=== PATIENT | female | born 1965 | race Caucasian/White ===

== ENCOUNTER 2020-07-25 07:34 | Outpatient (REF) | payer MEDICARE, SELFPAY ==
[2020-07-25 08:37] LABS: MANUAL DIFF FLAG NO
[2020-07-25 08:50] LABS: Basophils Percent Auto 0.8 % (0-2); Eosinophils Absolute Auto 0.2 X10*3/uL (0.0-0.4); Eosinophils Percent Auto 4.1 % (0-4); Hematocrit 40.4 % (37-47); Hemoglobin 13.2 g/dl (12.0-16.0); Imm Gran Abs Auto 0.01 X10*3/uL (0.00-0.03); Imm Gran Pct Auto 0.2 % (0.0-0.4); Lymphocytes Absolute Auto 1.7 X10*3/uL (1.2-4.9); Lymphocytes Percent Auto 34.8 % (20-40); Mean Corpuscular HGB Conc 32.7 g/dl (31.0-35.0); Mean Corpuscular Hemoglobin 29.8 pg (27.0-33.0); Mean Corpuscular Volume 91.2 fL (80-98); Mean Platelet Volume 10.2 fL (9.4-12.3); Monocytes Absolute Auto 0.5 X10*3/uL (0.1-1.2); Monocytes Percent Auto 9.5 % (2-11); Neutrophils Absolute Auto 2.5 X10*3/uL (2.0-8.3); Neutrophils Percent Auto 50.6 % (45-73); Platelet Count 258 X10*3/uL (160-400); Red Blood Count 4.43 X10*6/uL (4.20-5.50); Red Cell Distribution Width 13.4 % (11.0-16.0); White Blood Count 4.9 X10*3/uL (4.8-10.8)
[2020-07-25 09:22] LABS: TSH reflex Free T4 0.96 uIU/mL (0.32-4.0); Vitamin D 25-OH Total 62.8 ng/mL (>30)
[2020-07-25 09:32] LABS: Alanine Aminotransferase 19 U/L (0-31); Albumin Level 3.8 g/dL (3.5-5.0); Alkaline Phosphatase 90 U/L (39-117); Anion Gap 9 (12-20); Aspartate Amino Transferase 26 U/L (5-31); Bilirubin Total 0.5 mg/dL (0.0-1.0); Blood Urea Nitrogen 15 mg/dL (9-16); Calcium 9.1 mg/dL (8.4-10.2); Carbon Dioxide 28 mmol/L (22-29); Chloride 107 mmol/L (96-108); Cholesterol 200 mg/dL; Estimated Glomerular Filt Rate > 60; Glucose Fasting 81 mg/dL (60-99); HDL Cholesterol 66 mg/dL; LDL Cholesterol Calculated 124 mg/dl; Potassium 4.2 mmol/L (3.3-5.1); Sodium 140 mmol/L (135-145); Total Protein 6.4 g/dL (6.5-8.0); Triglycerides 53 mg/dL
[2020-07-30 15:27] LABS: Vitamin A 34 mcg/dL (38-98)
== END 2020-07-25 07:35 | disposition home or self-care (01) ==
LOC: HO.LAB 07:34
PROVIDERS: PCP Internal Medicine; Visit Provider Nurse Practitioner Family
DX: Z13.220 Encounter for screening for lipoid disorders (principal); R53.82 Chronic fatigue, unspecified
CPT/HCPCS: 36415; 80053; 80061; 82306; 84443; 84590; 85025

== ENCOUNTER 2021-07-29 06:33 | Outpatient (REF) | payer MEDICARE, SELFPAY ==
[2021-07-29 07:54] LABS: Anion Gap 9 (12-20); Blood Urea Nitrogen 12 mg/dL (9-16); Calcium 9.2 mg/dL (8.4-10.2); Carbon Dioxide 30 mmol/L (22-29); Chloride 104 mmol/L (96-108); Estimated Glomerular Filt Rate > 60; Glucose Fasting 82 mg/dL (60-99); Potassium 4.2 mmol/L (3.3-5.1); Sodium 139 mmol/L (135-145)
== END 2021-07-29 06:34 | disposition home or self-care (01) ==
LOC: HO.LAB 06:33
PROVIDERS: PCP Internal Medicine; Visit Provider Nurse Practitioner Family
DX: Z13.1 Encounter for screening for diabetes mellitus (principal)
CPT/HCPCS: 36415; 80048

== ENCOUNTER 2021-09-26 07:07 | Outpatient (REF) | payer MEDICARE, SELFPAY ==
[2021-09-26 07:29] LABS: MANUAL DIFF FLAG NO
[2021-09-26 07:51] LABS: Basophils Percent Auto 0.7 % (0-2); Eosinophils Absolute Auto 0.2 X10*3/uL (0.0-0.4); Eosinophils Percent Auto 3.9 % (0-4); Hematocrit 40.9 % (37.0-47.0); Hemoglobin 13.1 g/dl (12.0-16.0); Imm Gran Abs Auto 0.01 X10*3/uL (0.00-0.03); Imm Gran Pct Auto 0.2 % (0.0-0.4); Lymphocytes Percent Auto 35.7 % (20-40); Mean Corpuscular Hemoglobin 28.6 pg (27.0-33.0); Mean Corpuscular Volume 89.3 fL (80.0-98.0); Mean Platelet Volume 10.2 fL (9.4-12.3); Monocytes Absolute Auto 0.5 X10*3/uL (0.1-1.2); Monocytes Percent Auto 8.8 % (2-11); Neutrophils Absolute Auto 2.8 x10*3/uL (2.0-8.3); Neutrophils Percent Auto 50.7 % (45-73); Platelet Count 265 X10*3/uL (160-400); Red Blood Count 4.58 X10*6/uL (4.20-5.50); Red Cell Distribution Width 13.2 % (11.0-16.0); White Blood Count 5.6 X10*3/uL (4.8-10.8)
[2021-09-26 08:20] LABS: Alanine Aminotransferase 21 U/L (0-31); Albumin Level 3.9 g/dL (3.5-5.0); Alkaline Phosphatase 106 U/L (39-117); Aspartate Amino Transferase 24 U/L (5-31); Bilirubin Direct < 0.2 mg/dL (0.0-0.5); Bilirubin Total 0.4 mg/dL (0.0-1.0); Cholesterol 188 mg/dL; HDL Cholesterol 55 mg/dL; LDL Cholesterol Calculated 126 mg/dl; Total Protein 6.6 g/dL (6.5-8.0); Triglycerides 37 mg/dL
[2021-09-26 08:24] LABS: Appearance Urine CLEAR; Color Urine YELLOW; Glucose Urine UA NEG (NEG); Leukocyte Esterase Urine 3+ (NEG); Nitrite Urine NEG (NEG); Specific Gravity - Urine 1.015 (1.005-1.025); UACC Culture Trigger YES; Urine Blood NEG (NEG); Urine Ketones NEG (NEG); Urine Protein NEG (NEG-TRACE)
[2021-09-26 08:37] LABS: Squamous Epithelial Cell Urine 2+ /LPF
[2021-09-26 08:38] LABS: Renal Epithelial Cells Urine 1+ /LPF
[2021-09-26 08:41] LABS: TSH reflex Free T4 2.09 uIU/mL (0.32-4.0); Vitamin D 25-OH Total 79.7 ng/mL (>30)
[2021-09-26 08:43] LABS: RBC Urine 0 /HPF (0); WBC Clumps Urine NOTED
== END 2021-09-26 07:08 | disposition home or self-care (01) ==
LOC: HO.LAB 07:07
PROVIDERS: PCP Internal Medicine; Visit Provider Internal Medicine
DX: R00.2 Palpitations (principal); R53.82 Chronic fatigue, unspecified; E78.00 Pure hypercholesterolemia, unspecified; E55.9 Vitamin D deficiency, unspecified
CPT/HCPCS: 36415; 80061; 80076; 81001; 82306; 84443; 85025; 87086; 87147

== ENCOUNTER 2022-07-22 06:08 | Outpatient (REF) | payer MEDICARE, SELFPAY ==
[2022-07-22 08:09] LABS: Anion Gap 9 (12-20); Blood Urea Nitrogen 13 mg/dL (9-16); Calcium 9.2 mg/dL (8.4-10.2); Carbon Dioxide 28 mmol/L (22-29); Chloride 108 mmol/L (96-108); Estimated Glomerular Filt Rate > 60; Glucose Fasting 79 mg/dL (60-99); Potassium 3.9 mmol/L (3.3-5.1); Sodium 141 mmol/L (135-145)
== END 2022-07-22 06:09 | disposition home or self-care (01) ==
LOC: HO.LAB 06:08
PROVIDERS: PCP Internal Medicine; Visit Provider Nurse Practitioner Family
DX: Z13.1 Encounter for screening for diabetes mellitus (principal)
CPT/HCPCS: 36415; 80048

== ENCOUNTER 2022-08-07 08:41 | Outpatient (REF) | payer MEDICARE, SELFPAY ==
--- NOTE | ~2022-08-07 | XR_ITS ---
EXAMINATION: XR LUMBOSACRAL SPINE CLINICAL INFORMATION: Lower back pain. COMPARISON: Lumbar spine radiographs dated 12/12/2013. TECHNIQUE: Three views of the lumbosacral spine. FINDINGS: Normal vertebral body alignment. The lumbar lordosis is maintained. No acute fracture or subluxation. No loss of vertebral body or intervertebral disc height. No concerning lytic or blastic osseous lesion. Pelvic phleboliths. XR/XR lumbar spine 2-3V IMPRESSION: Unremarkable examination.
== END 2022-08-07 08:42 | disposition home or self-care (01) ==
LOC: HO.XRAY 08:41
PROVIDERS: PCP Internal Medicine; Visit Provider Internal Medicine
DX: M54.50 Low back pain, unspecified (principal)
CPT/HCPCS: 72100

== ENCOUNTER 2022-10-08 06:14 | Outpatient (REF) | payer MEDICARE, SELFPAY ==
[2022-10-08 06:26] LABS: MANUAL DIFF FLAG NO
[2022-10-08 07:06] LABS: Basophils Percent Auto 0.8 % (0-2); Eosinophils Absolute Auto 0.2 X10*3/uL (0.0-0.4); Hematocrit 42.8 % (37.0-47.0); Hemoglobin 13.8 g/dl (12.0-16.0); Imm Gran Abs Auto 0.01 X10*3/uL (0.00-0.03); Imm Gran Pct Auto 0.2 % (0.0-0.4); Lymphocytes Absolute Auto 2.5 X10*3/uL (1.2-4.9); Lymphocytes Percent Auto 50.9 % (20-40); Mean Corpuscular HGB Conc 32.2 g/dl (31.0-35.0); Mean Corpuscular Hemoglobin 29.1 pg (27.0-33.0); Mean Corpuscular Volume 90.1 fL (80.0-98.0); Mean Platelet Volume 10.3 fL (9.4-12.3); Monocytes Absolute Auto 0.4 X10*3/uL (0.1-1.2); Monocytes Percent Auto 8.9 % (2-11); Neutrophils Absolute Auto 1.8 x10*3/uL (2.0-8.3); Neutrophils Percent Auto 35.2 % (45-73); Platelet Count 220 X10*3/uL (160-400); Red Blood Count 4.75 X10*6/uL (4.20-5.50); Red Cell Distribution Width 13.4 % (11.0-16.0)
[2022-10-08 07:13] LABS: Estimated Average Glucose 97 mg/dL
[2022-10-08 07:22] LABS: Alanine Aminotransferase 27 U/L (0-31); Albumin Level 4.1 g/dL (3.5-5.0); Alkaline Phosphatase 91 U/L (39-117); Anion Gap 12 (12-20); Aspartate Amino Transferase 33 U/L (5-31); Bilirubin Total 0.7 mg/dL (0.0-1.0); Blood Urea Nitrogen 14 mg/dL (9-16); Calcium 9.6 mg/dL (8.4-10.2); Carbon Dioxide 28 mmol/L (22-29); Chloride 105 mmol/L (96-108); Cholesterol 199 mg/dL (<200); Estimated Glomerular Filt Rate > 60; Glucose Fasting 83 mg/dL (60-99); HDL Cholesterol 71 mg/dL (>40); LDL Cholesterol Calculated 119 mg/dL (<100); Potassium 3.9 mmol/L (3.3-5.1); Sodium 141 mmol/L (135-145); Total Protein 7.1 g/dL (6.5-8.0); Triglycerides 49 mg/dL (<150)
[2022-10-08 07:40] LABS: TSH reflex Free T4 2.73 uIU/mL (0.32-4.0); Vitamin D 25-OH Total 64.6 ng/mL (>30)
[2022-10-08 07:53] LABS: Folate 16.8 ng/mL (> or = 4.0); Vitamin B12 986 pg/mL (200-900)
[2022-10-08 08:54] LABS: Appearance Urine Clear; Color Urine Yellow; Glucose Urine UA Negative (Negative); Leukocyte Esterase Urine Small (1+) (Negative); Nitrite Urine Negative (Negative); UMIC TRIGGER UACC YES; Urine Blood Negative (Negative); Urine Ketones Negative (Negative); Urine Protein Negative (Neg-Trace)
[2022-10-08 09:04] LABS: Bacteria Urine None Seen (None Seen); Hyaline Casts Urine 0-2 /LPF (0-2); RBC Urine 0-2 /HPF (0-2); Squamous Epithelial Cell Urine 0-2 /HPF (0-2); UACC Culture Trigger YES; WBC Urine 0-5 /HPF (0-5)
[2022-10-15 00:03] LABS: Vitamin A 35 mcg/dL (38-98)
== END 2022-10-08 06:15 | disposition home or self-care (01) ==
LOC: HO.LAB 06:14
PROVIDERS: PCP Internal Medicine; Visit Provider Internal Medicine
DX: Z00.00 Encounter for general adult medical examination without abnormal findings (principal); E53.8 Deficiency of other specified B group vitamins; E50.9 Vitamin A deficiency, unspecified; R73.9 Hyperglycemia, unspecified; E78.00 Pure hypercholesterolemia, unspecified; I34.1 Nonrheumatic mitral (valve) prolapse; G43.909 Migraine, unspecified, not intractable, without status migrainosus; E55.9 Vitamin D deficiency, unspecified; R30.0 Dysuria
CPT/HCPCS: 36415; 80053; 80061; 81001; 82306; 82607; 82746; 83036; 84443; 84590; 85025; 87086

== ENCOUNTER 2022-10-19 08:22 | Emergency (ER) | payer MEDICARE, SELFPAY ==
[2022-10-19 08:24] VITALS: BP 133/75; PULSE 90; RESP 18; TEMP 36.7; O2SAT 97; BMI 21.0
--- NOTE | 2022-10-19 08:31 | ED.EYEPROB ---
HPI - Eye Problem General Chief complaint: Eye Problems Stated complaint: R eye pain Time Seen by Provider: 10/19/22 08:29 Source: patient Mode of arrival: ambulatory Limitations: no limitations History of Present Illness HPI Narrative: right eyelid pain and swelling for 2 days. no injury no problem with her vision, noticed a little swelling to her eyelid. chief complaint: other (eyelid pain) Onset (ago): day(s) Onset description: gradual Duration: constant Location: right eye Related Data Home Medications Medication Instructions Recorded Confirmed sulfacetamide sodium (acne) 10 % ml topical 07/11/20 08/06/22 lotion (suspension) Previous Rx's Medication Instructions Recorded bupropion HCl 150 mg tablet,12 hr 150 mg PO DAILY 90 days #90 tabs 11/12/21 sustained-release erythromycin 5 mg/gram (0.5 %) eye 1 appl ophthalmic (eye) Q6H apply 10/19/22 ointment small amount 4 times a day #3.5 grams Allergies Allergy/AdvReac Type Severity Reaction Status Date / Time codeine [CODEINE] Allergy Unknown RASH Verified 10/19/22 08:23 dog dander [DOGS] Allergy Unknown DIFFICULTY Verified 10/19/22 08:23 BREATHING fluconazole [From DIFLUCAN] Allergy Unknown DIARRHEA Verified 10/19/22 08:23 levofloxacin [From LEVAQUIN] Allergy Unknown RASH Verified 10/19/22 08:23 milk [MILK] Allergy Unknown HIVES Verified 10/19/22 08:23 Penicillins [PENICILLINS] Allergy Unknown HIVES Verified 10/19/22 08:23 pollen extracts [POLLEN] Allergy Unknown DIFFICULTY Verified 10/19/22 08:23 BREATHING oxycodone [OXYCODONE] AdvReac Unknown VOMITING Verified 10/19/22 08:23 Review of Systems Review of Systems: Yes all other systems are reviewed and are negative Neurologic: Denies Sensory deficit (Neuro) [facility] [place] Past Medical History Medical History Anxiety Chronic fatigue Depression Migraine Mitral valve prolapse Osteoarthritis of cervical spine Surgical History No pertinent past surgical history Family History Family History Father CVD (cardiovascular disease) Mother No problems noted. Other Mental health problem Social History Social History Housing: Condominium Alcohol intake: never Patient Tobacco Use Status: Never used Tobacco e-Cigarette/Vaping Use: Never Used Second Hand Smoke Exposure: No service: No Current occupational status: disabled Cognitive needs: No Hearing needs: No Vision needs: No Physical Exam Vital Signs: Vital Signs: Last Vital Signs Temp 98.0 F 10/19/22 08:24 Pulse 90 10/19/22 08:24 Resp 18 10/19/22 08:24 BP 133/75 10/19/22 08:24 Pulse Ox 97 10/19/22 08:24 O2 Del Method Room Air 10/19/22 08:24 BMI result Body Mass Index 21.0 Const: General: healthy appearing Nutritional Appearance: average body habitus Orientation/consciousness: oriented to person and patient oriented x3 Limitations: no limitations HEENT: Head: Yes normal to inspection Ears: external ears normal General nose exam: Normal external nose present Mouth: Normal oral and palatal mucosa present and oropharynx normal Throat: Yes posterior oropharynx normal Eyes: Other: right medial upper eyelid with erythema and slight swelling Neck: Other: supple Neck: Yes normal visual inspection Chest: Chest palpation & inspection: normal inspection of the chest Resp: Auscultation: clear to auscultation bilaterally Cardio: Jugular venous distension: no JVD Rate: regular rate Rhythm: regular rhythm Heart sounds: S1 normal heart sound present and S2 normal heart sound present GI: Inspection: Yes normal to inspection Palpation (GI): Soft to palpation, nontender and No hepatosplenomegaly present Auscultation: normal bowel sounds : General: Yes no CVA tenderness Back/Spine/Pelvis: Back: no CVA tenderness Skin: General skin exam: no rashes or lesions noted Neuro: General: oriented to person and patient oriented x3 Cranial nerves: Yes CN's II-XII intact bilaterally Motor exam (neuro): 5/5 motor strength present throughout Sensory Exam: No Sensory deficit (Neuro) Extrem: General: Yes normal to inspection Psych: Appearance: grossly normal Course Reevaluation(s) Reevaluation #1: Will treat for early hordoleum with erythromycin and warm compresses Time: 08:34 Medical Decision Making Differential Diagnosis Differential Diagnoses: The differential diagnosis associated with the presentation includes (hordoleum, infected duct, conjunctivitis were all considered) Tests considered The following testing was considered but not selected: I considered doing a flouresceine test but no trauma no injection to the conjunctiva Discharge Plan Discharge Clinical Impression: Hordeolum Patient Disposition: Home, Self-Care Instructions: Sis (ED) Additional Instructions: warm compresses 4 times a day Prescriptions: New erythromycin 5 mg/gram (0.5 %) ointment 1 appl ophthalmic (eye) Q6H Qty: 3.5 0RF No Action bupropion HCl 150 mg tablet sustained-release 12 hr 150 mg PO DAILY 90 Days Qty: 90 3RF sulfacetamide sodium (acne) 10 % suspension topical Referrals: Beto Ba MD [Primary Care Provider] - 1 week
[2022-10-19] MEDS: Erythromycin Base 0.5% Oph Oin 1 GM TUBE 1 CM EYE-RIGHT (08:49)
== END 2022-10-19 09:04 | disposition home or self-care (01) ==
PROVIDERS: Emergency Provider Emergency Medicine; PCP Internal Medicine
DX: H00.013 Hordeolum externum right eye, unspecified eyelid (principal); Z79.899 Other long term (current) drug therapy
CPT/HCPCS: 99283; 99284

== ENCOUNTER 2022-11-28 09:10 | Outpatient (AMB) | payer MEDICARE, SELFPAY ==
--- NOTE | 2022-11-28 09:14 | A.OFFPC_ITS ---
Vital Signs 11/28/22 09:23 Height 5 ft 2 in Weight 116 lb 2 oz BMI 21.2 BP 100/62 Blood Pressure Location Lt brachial Position Sitting Respiration 17 Pulse 88 Pulse Source Pulse Oximeter Pulse Oximetry (%) 98 Oxygen Delivery Method Room Air Intake Visit Reasons: pain due to sty on her eye Intake Note: Pt is here for stye on right eye. Pt requesting health care marketing specialist. [employer] Player Required: No Accompanied by: Self / Same As Patient Allergies codeine [CODEINE] Allergy (Unknown, Verified 11/28/22 10:07) RASH dog dander [DOGS] Allergy (Unknown, Verified 11/28/22 10:07) DIFFICULTY BREATHING fluconazole [From DIFLUCAN] Allergy (Unknown, Verified 11/28/22 10:07) DIARRHEA levofloxacin [From LEVAQUIN] Allergy (Unknown, Verified 11/28/22 10:07) RASH milk [MILK] Allergy (Unknown, Verified 11/28/22 10:07) HIVES Penicillins [PENICILLINS] Allergy (Unknown, Verified 11/28/22 10:07) HIVES pollen extracts [POLLEN] Allergy (Unknown, Verified 11/28/22 10:07) DIFFICULTY BREATHING oxycodone [OXYCODONE] Adverse Reaction (Unknown, Verified 11/28/22 10:07) VOMITING Medication List - Last Reconciled 11/28/22 by Beto Ba MD bupropion HCl 150 mg PO DAILY 90 days erythromycin 1 appl ophthalmic (eye) Q6H sulfacetamide sodium (acne) 10% mL topical Tobacco use date assessed: 08/06/22 Dental Screening Dental Screen Date: 11/28/22 Did you have a dental visit in the last 12 months?: Yes Did you have a dental problem in the last 6 months where you did not have access to dental care?: No Was dental information given to patient?: Patient has dentist HPI pain due to sty on her eye HPI Details Patient comes in today for further evaluation/discussion of recurrent right upper eyelid infection / sty States that she developed a sty over the medial/nasal side of her right upper eyelid internally last month on 10/19/22 As it was on the weekend then, she went to the ER and was prescribed some erythromycin eye ointment and instructed to apply warm compress until the sty subsides States that she broke out with another sty a week later, this time on the lateral side of her right upper eyelid and also internally She did the same things she did a week ago and her sty also gradually cleared up States that she called her eye doctor (Dr. Dent) to schedule an appointment to have her eye checked as she was concerned about how often the sty were recurring but was told that the earliest appointment they can give her was sometime in 02/2023 She is wondering if we can try to get her in to see another eye doctor sooner to have her eye checked out States that her right eye currently feels okay and that both of the lesions have cleared up but she feels that there is a small residual area on the nasal side of her right upper eyelid internally that is still slightly swollen/prominent and she is afraid that the sty can recur there at anytime States that she presently has no other acute complaints or issues [facility] Medical History Depression Anxiety Chronic fatigue Mitral valve prolapse Migraine Osteoarthritis of cervical spine Surgical History No pertinent past surgical history Family History Father CVD (cardiovascular disease) Mother No problems noted. Other Mental health problem Social History Housing: Condominium Alcohol intake: never Patient Tobacco Use Status: Never used Tobacco e-Cigarette/Vaping Use: Never Used Second Hand Smoke Exposure: No service: No Current occupational status: disabled Cognitive needs: No Hearing needs: No Vision needs: No Questionnaire Thrive Questionnaire Date Thrive assessed: 08/06/22 FITO-7 AMB Questionnaire FITO-7 Date FITO - 7 assessed: 08/06/22 Source: Developed by Drs. Ahmet Francis, Peyton Tubbs, Gabriel Nicholson and colleagues, with an educational benson from [employer]. Review of Systems Const Denies fever(s) and Denies headache(s) Eyes Details: (+) slight discomfort over the nasal side of her right upper eyelid - see HPI Denies blurry vision and Denies eye pain ENT Denies dysphagia, Denies dizziness, Denies headache(s) and Denies sore throat Card Denies chest pain, Denies palpitations and Denies dyspnea Resp Denies cough and Denies dyspnea GI Denies abdominal pain, Denies constipation, Denies dysphagia, Denies diarrhea, Denies nausea and Denies vomiting Denies nocturia and Denies dysuria Neuro Denies dizziness and Denies headache(s) Endo Denies palpitations Physical exam (Primary Care) Vital Signs: Last Vital Signs Pulse 88 11/28/22 09:23 Resp 17 11/28/22 09:23 BP 100/62 11/28/22 09:23 Pulse Ox 98 11/28/22 09:23 Oxygen Delivery Method Room Air 11/28/22 09:23 BMI result Body Mass Index 21.2 Tobacco/Smoking Status: Tobacco use Status Tobacco use date assessed 08/06/22 11/28/22 09:15 Patient Tobacco Use Status Never used Tobacco 11/28/22 09:15 e-Cigarette/Vaping Use Never Used 11/28/22 09:15 Thrive Assessment: Date of Thrive Assessment Date Thrive assessed 08/06/22 11/28/22 09:15 Const General: no acute distress and alert Eyes General: appearance normal, both eyes and all related structures Eyelids: Yes eyelids normal Conjunctivae: conjunctivae normal Pupils: Equal, round and reactive pupils present EOM: EOMs intact bilaterally Neck Neck: Yes no lymphadenopathy and Yes supple Resp Auscultation: clear to auscultation bilaterally, no rales and no wheezes Cardio Rate: regular rate Rhythm: regular rhythm Heart sounds: no murmurs GI Palpation (GI): Soft to palpation, nontender and No hepatosplenomegaly present Neuro Cranial nerves: Yes Equal, round and reactive pupils present Extrem General: Yes no clubbing, cyanosis or edema Assessment and Plan Assessment & Plan (1) Hordeolum: Code(s): H00.019 - Hordeolum externum unspecified eye, unspecified eyelid Qualifiers: Hordeolum type: internum Laterality: right Eyelid: upper Qualified Code(s): H00.021 - Hordeolum internum right upper eyelid Plan: Per request, [facility] of her recent recurrent internal hordeolum of the right upper eyelid Advised that she can try calling them to see if they can get her on a cancellation list but it will still be up to their schedule as to how soon they can see her Advised that her right upper eyelid looks okay at this time and she can continue applying some warm compress over her right upper eyelid PRN for symptomatic relief until she is seen by ophthalmology Advised that she can start back on her Erythromycin eye ointment as instructed IF her sty recurs at any time before she is able to get in to see the eye doctor Plan Follow up as scheduled in January 2023 Orders: Referrals Ophthalmology Referral H00.019 - Hordeolum externum unspecified eye, unspecified eyelid Coding Level of Care Code Est Pt Level 3 (63385) Diagnoses Hordeolum internum of right upper eyelid H00.021 Hordeolum type: internum Laterality: right Eyelid: upper
[2022-11-28 09:23] VITALS: BP 100/62; PULSE 88; RESP 17; O2SAT 98; BMI 21.2
== END 2022-11-28 10:09 | disposition home or self-care (01) ==
PROVIDERS: PCP Internal Medicine; Visit Provider Internal Medicine
DX: H00.021 Hordeolum internum right upper eyelid (principal)
CPT/HCPCS: 99213

== ENCOUNTER 2022-12-09 10:04 | Outpatient (AMB) | payer MEDICARE, SELFPAY ==
--- NOTE | 2022-12-09 10:12 | MHC.OFFWIV ---
Intake Vital Signs 12/09/22 10:20 Height 5 ft 2 in Weight 115 lb BMI 21.0 BP 110/60 Blood Pressure Location Rt brachial Position Sitting Pulse 86 Pulse Source Pulse Oximeter Temp 97.4 F Temp Source Temporal Artery Scan Pulse Oximetry (%) 98 Oxygen Delivery Method Room Air Intake Visit Reasons: EST/2 weeks with sore throat(lobby masked) Intake Note: Pt is here c/o sore throat for the past two weeks. Pt states she has now developed a dry cough causing her difficulty to sleep at night. Pt states home remedies and otc medications have not helped her. Patient Tobacco Use Status: Never used Tobacco Allergies codeine [CODEINE] Allergy (Unknown, Verified 12/09/22 10:45) RASH dog dander [DOGS] Allergy (Unknown, Verified 12/09/22 10:45) DIFFICULTY BREATHING fluconazole [From DIFLUCAN] Allergy (Unknown, Verified 12/09/22 10:45) DIARRHEA levofloxacin [From LEVAQUIN] Allergy (Unknown, Verified 12/09/22 10:45) RASH milk [MILK] Allergy (Unknown, Verified 12/09/22 10:45) HIVES Penicillins [PENICILLINS] Allergy (Unknown, Verified 12/09/22 10:45) HIVES pollen extracts [POLLEN] Allergy (Unknown, Verified 12/09/22 10:45) DIFFICULTY BREATHING oxycodone [OXYCODONE] Adverse Reaction (Unknown, Verified 12/09/22 10:45) VOMITING Medication List - Last Reconciled 12/09/22 by Rahul Goodwin MD bupropion HCl 150 mg PO DAILY 90 days erythromycin 1 appl ophthalmic (eye) Q6H sulfacetamide sodium (acne) 10% mL topical Do you need a note to return to daycare/school/sports/work: No HPI EST/2 weeks with sore throat(lobby masked) HPI Details Patient presents for a sick visit. Reporting symptoms of sinus congestion, sore throat and difficulty swallowing. Low-grade fever. No family member is sick. No recent travel. Patient reports symptoms of malaise and fatigue. [facility] Medical History Depression Anxiety Chronic fatigue Mitral valve prolapse Migraine Osteoarthritis of cervical spine Surgical History No pertinent past surgical history Family History Father CVD (cardiovascular disease) Mother No problems noted. Other Mental health problem Social History Housing: Condominium Alcohol intake: never Patient Tobacco Use Status: Never used Tobacco e-Cigarette/Vaping Use: Never Used Second Hand Smoke Exposure: No service: No Current occupational status: disabled Cognitive needs: No Hearing needs: No Vision needs: No Physical Exam Vital Signs: Last Vital Signs Temp 97.4 F 12/09/22 10:20 Pulse 86 12/09/22 10:20 BP 110/60 12/09/22 10:20 Pulse Ox 98 12/09/22 10:20 Oxygen Delivery Method Room Air 12/09/22 10:20 BMI result Body Mass Index 21.0 Const General: cooperative and healthy appearing Nutritional Appearance: well nourished Orientation/consciousness: patient oriented x3 Limitations: no limitations HEENT Head: Yes normal to inspection Eyes General: appearance normal, both eyes and all related structures Neck Neck: Yes normal visual inspection Chest Chest palpation & inspection: normal palpation of entire chest wall Resp Effort & Inspection: normal respiratory effort Neuro General: patient oriented x3 Results AMB Rapid Strep AMB Rapid Strep Negative Last Edit by Gina Martini CMA on 12/09/22 10:24 Results Reviewed Results Reviewed: Laboratory Last Values Strep Scn [facility] Negative 12/09/22 10:24 Assessment & Plan Assessment & Plan (1) Upper respiratory tract infection: Code(s): J06.9 - Acute upper respiratory infection, unspecified Plan: Antibiotics ordered. Increase fluid intake. Tylenol for aches and pains. If symptoms worsen, follow-up here for a recheck. Orders: Orders AMB Rapid Strep Screen Today Z13.9 - Encounter for screening, unspecified Coding Level of Care Code Est Pt Level 3 (89032) Diagnoses Upper respiratory tract infection J06.9
[2022-12-09 10:20] VITALS: BP 110/60; PULSE 86; TEMP 36.3; O2SAT 98; BMI 21.0
== END 2022-12-09 11:15 | disposition home or self-care (01) ==
PROVIDERS: PCP Internal Medicine; Visit Provider Internal Medicine
DX: J06.9 Acute upper respiratory infection, unspecified (principal); J02.9 Acute pharyngitis, unspecified
CPT/HCPCS: 87880; 99213

== ENCOUNTER 2023-02-04 08:32 | Outpatient (AMB) | payer MEDICARE, SELFPAY ==
[2023-02-04 08:35] VITALS: BP 102/70; PULSE 96; O2SAT 96; BMI 21.8
--- NOTE | 2023-02-04 08:35 | A.OFFPC_ITS ---
Vital Signs 02/04/23 08:35 Height 5 ft 2 in Weight 119 lb 2 oz BMI 21.8 BP 102/70 Blood Pressure Location Lt brachial Position Sitting Pulse 96 Pulse Source Pulse Oximeter Pulse Oximetry (%) 96 Oxygen Delivery Method Room Air Intake Visit Reasons: mitral valve prolapse, migraine, OA Medical Records Receptionist Required: No Accompanied by: Self / Same As Patient Allergies codeine [CODEINE] Allergy (Unknown, Verified 02/04/23 09:14) RASH dog dander [DOGS] Allergy (Unknown, Verified 02/04/23 09:14) DIFFICULTY BREATHING fluconazole [From DIFLUCAN] Allergy (Unknown, Verified 02/04/23 09:14) DIARRHEA levofloxacin [From LEVAQUIN] Allergy (Unknown, Verified 02/04/23 09:14) RASH milk [MILK] Allergy (Unknown, Verified 02/04/23 09:14) HIVES Penicillins [PENICILLINS] Allergy (Unknown, Verified 02/04/23 09:14) HIVES pollen extracts [POLLEN] Allergy (Unknown, Verified 02/04/23 09:14) DIFFICULTY BREATHING oxycodone [OXYCODONE] Adverse Reaction (Unknown, Verified 02/04/23 09:14) VOMITING Medication List - Last Reconciled 02/04/23 by Beto Ba MD bupropion HCl 150 mg PO DAILY 90 days sulfacetamide sodium (acne) 10% mL topical Tobacco use date assessed: 02/04/23 Dental Screening Dental Screen Date: 02/04/23 Did you have a dental visit in the last 12 months?: Yes Did you have a dental problem in the last 6 months where you did not have access to dental care?: No Was dental information given to patient?: Patient has dentist HPI mitral valve prolapse, migraine, OA HPI Details Patient comes in today for her follow up visit States that she feels okay She denies any headaches or dizziness Denies any chest pains, no SOB No nausea/vomiting, no abdominal pain No change in bowel habits noted Would like to know how she did on her labs done back in September 2022 She had a negative Cologuard in July 2020 and will need this repeated next year unless she decides to go for a regular colonoscopy Pap smear and annual lamination operator exam was last done in 01/2022 [facility] Medical History Depression Anxiety Chronic fatigue Mitral valve prolapse Migraine Osteoarthritis of cervical spine Surgical History No pertinent past surgical history Family History Father CVD (cardiovascular disease) Mother No problems noted. Other Mental health problem Social History Housing: Condominium Alcohol intake: never Patient Tobacco Use Status: Never used Tobacco e-Cigarette/Vaping Use: Never Used Second Hand Smoke Exposure: No service: No Current occupational status: disabled Cognitive needs: No Hearing needs: No Vision needs: No Questionnaire PHQ-9 Over the last 2 weeks, how often have you been bothered by any of the following problems? 1. Little interest or pleasure in doing things: several days (family loss ) 2. Feeling down, depressed, or hopeless: several days 3. Trouble falling or staying asleep, or sleeping too much: several days 4. Feeling tired or having little energy: several days 5. Poor appetite or overeating: not at all 6. Feeling bad about yourself - or that you are a failure or have let yourself or your family down: not at all 7. Trouble concentrating on things, such as reading the newspaper or watching television: not at all 8. Moving or speaking so slowly that other people could have noticed. Or the opposite - being so fidgety or restless that you have been moving around a lot more than usual: not at all 9. Thoughts that you would be better off or of hurting yourself in some way: not at all Total score: 4 Depression Screening Interpretation: Positive Depression Screening Follow-up: Existing condition and In treatment Depression Screening Done: Yes 13493 - PHQ-9 Billing: Yes Source: Developed by Drs. Ahmet Francis, Peyton Tubbs, Gabriel Nicholson and colleagues, with an educational benson from [employer]. Thrive Questionnaire Date Thrive assessed: 02/04/23 I am a: Patient What is your living situation today?: I have a steady place to live Within the past 12 months, did the food you bought not last and you didn't have the money to get more?: Never true Within the past 12 months, did you worry whether your food would run out before you got money to buy more?: Never true Do you have trouble paying for medicines?: No Do you have trouble getting transportation to medical appointments?: No Do you have trouble paying your heating and electricity bill?: No Do you have trouble taking care of your child, family member or friend?: No Do you have trouble with day-to-day activities such as bathing, preparing meals, shopping, managing finances, etc.?: No Are you currently unemployed and looking for a job?: No Are you interested in more education?: No Please select the resources that you would like help with: None Currently or been in a relationship where the following occur: no concerns reported AUDIT C Alcohol Use Questionnaire (AUDIT-C) 1. How often do you have a drink containing alcohol?: Never 3. How often do you have six or more drinks on one occasion?: Never Total Score: 0 Score Reviewed/Action Taken: Yes FITO-7 AMB Questionnaire FITO-7 Date FITO - 7 assessed: 02/04/23 Feeling nervous, anxious, or on edge: 0 = Not at all Not being able to stop or control worryin = Not at all Worrying too much about different things: 0 = Not at all Trouble relaxin = Not at all Being so restless that it is hard to sit still: 0 = Not at all Becoming easily annoyed or irritable: 0 = Not at all Feeling afraid as if something awful might happen: 0 = Not at all Total FITO-7 score (0-4 normal; 5-9 mild; 10-14 moderate; 15-21 severe): 0 Source: Developed by Drs. Ahmet Francis, Peyton Tubbs, Gabriel Nicholson and colleagues, with an educational benson from [employer]. Review of Systems Const Denies chills, Reports difficulty sleeping, Reports fatigue, Denies fever(s) and Denies headache(s) ENT Denies dysphagia, Denies dizziness, Denies otalgia, Denies headache(s), Reports neck pain (on and off), Denies odynophagia and Denies sore throat Card Denies chest pain, Reports palpitations (occasional fluterring sensation in heart,usually when she feels stressed) and Denies dyspnea Resp Denies cough, Denies dyspnea and Denies wheezing GI Denies abdominal pain, Denies constipation, Denies dysphagia, Denies heartburn, Denies diarrhea, Denies nausea, Denies odynophagia and Denies vomiting Denies difficulty voiding, Denies nocturia, Denies dysuria and Denies urinary urgency Musc Reports back pain (on and off over the lower back), Reports neck pain (on and off) and Reports stiffness (in the neck) Skin/Breast Denies rash Neuro Denies dizziness and Denies headache(s) Psych Reports anxiety Endo Reports fatigue and Reports palpitations (occasional fluterring sensation in heart,usually when she feels stressed) Aller/Immun Denies wheezing Physical exam (Primary Care) Vital Signs: Last Vital Signs Pulse 96 02/04/23 08:35 BP 102/70 02/04/23 08:35 Pulse Ox 96 02/04/23 08:35 Oxygen Delivery Method Room Air 02/04/23 08:35 BMI result Body Mass Index 21.8 Tobacco/Smoking Status: Tobacco use Status Tobacco use date assessed 02/04/23 02/04/23 08:40 Patient Tobacco Use Status Never used Tobacco 02/04/23 08:40 e-Cigarette/Vaping Use Never Used 02/04/23 08:40 PHQ-9: PHQ-9 Score PHQ-9: Total score 4 02/04/23 09:23 Depression Screening Interpretation: Positive Depression Screening Follow-up: Existing condition and In treatment Thrive Assessment: Date of Thrive Assessment Date Thrive assessed 02/04/23 02/04/23 08:40 Currently or been in a relationship where the following occur: no concerns reported Const General: no acute distress and alert HENMT Ears: TM's normal bilaterally and EAC's normal Throat: Yes posterior oropharynx normal and Yes tonsils normal (no TP congestion noted) Neck Neck: Yes no lymphadenopathy and Yes tender (mildly over the cervical spine on palpation) Resp Auscultation: clear to auscultation bilaterally, no rales and no wheezes Cardio Rate: regular rate Rhythm: regular rhythm Heart sounds: no murmurs GI Palpation (GI): Soft to palpation and nontender Auscultation: normal bowel sounds Skin Rashes: no rashes Extrem General: Yes no clubbing, cyanosis or edema Results Reviewed Results Reviewed: Laboratory Tests 07/22/22 10/08/22 10/08/22 06:23 06:20 06:20 WBC Hgb Hct Plt Count Sodium 141 Potassium 3.9 Creatinine 0.72 Estimated GFR > 60 Fasting Glucose 79 Hemoglobin A1c % Calcium 9.2 AST ALT Triglycerides Cholesterol LDL Cholesterol, Calc HDL Cholesterol Vitamin A Vitamin B12 25-OH Vitamin D Total TSH Ur Specific [place] 1.010 Urine Protein Negative Urine Glucose (UA) Negative Urine Blood Negative 10/08/22 10/08/22 10/08/22 06:24 06:24 06:24 WBC 5.0 Hgb 13.8 Hct 42.8 Plt Count 220 Sodium 141 Potassium 3.9 Creatinine 0.72 Estimated GFR > 60 Fasting Glucose 83 Hemoglobin A1c % 5.0 Calcium 9.6 AST 33 H ALT 27 Triglycerides 49 Cholesterol 199 LDL Cholesterol, Calc 119 H HDL Cholesterol 71 Vitamin A 35 L Vitamin B12 986 H 25-OH Vitamin D Total 64.6 TSH 2.73 Ur Specific [place] Urine Protein Urine Glucose (UA) Urine Blood Assessment and Plan Assessment & Plan (1) Chronic fatigue: Code(s): R53.82 - Chronic fatigue, unspecified Plan: Is again most likely related to her mood disorder Advised again of option to refer her to sleep medicine for further evaluation - declined offer but states that she will call for referral if she decides to pursue this Results of her labs done back in September 2022 reviewed and discussed with patient - advised that her labs done back then were all within normal limits (2) Migraine: Code(s): G43.909 - Migraine, unspecified, not intractable, without status migrainosus Qualifiers: Intractability: not intractable Migraine type: unspecified Status migrainosus presence: without status migrainosus Qualified Code(s): G43.909 - Migraine, unspecified, not intractable, without status migrainosus Plan: Stable Reinforced again avoidance of migraine triggers Continue OTC Excedrin Migraine and/or Fioricet 50-325-40 mg 2 to 3 times a day only as needed (3) Mitral valve prolapse: Comment: Echocardiogram done in June 2015 came out normal Code(s): I34.1 - Nonrheumatic mitral (valve) prolapse Plan: Has been advised by cardiology that she had a normal EKG and her echocardiogram done in 2015 also came out normal, and without any significant family history of CAD, she does not require any further cardiac work ups and just needs to see or follow up with cardiology as needed Requested previously to be referred to [facility] States that she was seen by cardiology a few months ago in August 2022 and had several work ups done, including a 14-day ZIO XT patch as well as an exercise nuclear stress test Echocardiogram done back on 04/30/22 revealed a normal LVEF of 55 to 60%, with no regional wall motion abnormalities; RV is normal is size and function and there is mild prolapse of the posterior mitral valve leaflet and trace mitral regurgitation States that she was never called up again after her tests so she assumed all of her work ups were normal Follow up with cardiology as scheduled (4) Osteoarthritis of cervical spine: Comment: Cervical spine x-rays done at [facility] [place] back in 2004 showed (+) degenerative changes at C5 - C6 Code(s): M47.812 - Spondylosis without myelopathy or radiculopathy, cervical region Qualifiers: Spinal osteoarthritis complication: unspecified spinal osteoarthritis Qualified Code(s): M47.812 - Spondylosis without myelopathy or radiculopathy, cervical region Plan: Patient reminded to continue with the neck stretching exercises as previously instructed regularly to help manage her neck pains better May continue using OTC topical meds and patches PRN for symptomatic relief (5) Low back pain: Code(s): M54.50 - Low back pain, unspecified Qualifiers: Back pain laterality: midline Chronicity: acute Sciatica presence: without sciatica Qualified Code(s): M54.50 - Low back pain, unspecified Plan: Discussed activity and weight-lifting restrictions Will send her for lumbar spine x-rays for further evaluation Lumbar spine x-rays done back in 2013 came out normal (6) Anxiety: Code(s): F41.9 - Anxiety disorder, unspecified Plan: Is on Wellbutrin SR 150 mg QD, which she states has been helping with her anxiety and does not wish to have her Rx dose increased/adjusted further at this time (7) Depression: Code(s): F32.9 - Major depressive disorder, single episode, unspecified Qualifiers: Depression Type: dysthymia Qualified Code(s): F34.1 - Dysthymic disorder Plan: Continue Wellbutrin SR 150 mg QD Plan Follow up in 6 months Coding Level of Care Code Est Pt Level 4 (29536) Diagnoses Chronic fatigue R53.82 Migraine without status migrainosus, not intractable, unspecified migraine type G43.909 Intractability: not intractable Migraine type: unspecified Status migrainosus presence: without status migrainosus Mitral valve prolapse I34.1 Osteoarthritis of cervical spine, unspecified spinal osteoarthritis complication status M47.812 Spinal osteoarthritis complication: unspecified spinal osteoarthritis Acute midline low back pain without sciatica M54.50 Back pain laterality: midline Chronicity: acute Sciatica presence: without sciatica Anxiety F41.9 Dysthymia F34.1 Depression Type: dysthymia
== END 2023-02-04 09:36 | disposition home or self-care (01) ==
PROVIDERS: PCP Internal Medicine; Visit Provider Internal Medicine
DX: R53.82 Chronic fatigue, unspecified (principal); G43.909 Migraine, unspecified, not intractable, without status migrainosus; I34.1 Nonrheumatic mitral (valve) prolapse; M47.812 Spondylosis without myelopathy or radiculopathy, cervical region; M54.50 Low back pain, unspecified; F41.9 Anxiety disorder, unspecified; F34.1 Dysthymic disorder
CPT/HCPCS: 99214

== ENCOUNTER 2023-08-06 09:05 | Outpatient (AMB) | payer MEDICARE, SELFPAY ==
[2023-08-06 09:15] VITALS: BP 90/62; PULSE 73; O2SAT 98; BMI 21.9
--- NOTE | 2023-08-06 09:15 | MHC.PC.OV ---
Vital Signs 08/06/23 09:15 Height 5 ft 2 in Weight 120 lb 0.2 oz BMI 21.9 BP 90/62 Blood Pressure Location Lt brachial Position Sitting Pulse 73 Pulse Source Pulse Oximeter Pulse Oximetry (%) 98 Oxygen Delivery Method Room Air Intake Visit Reasons: 6mth f/u Client Support Analyst Required: No Allergies codeine [CODEINE] Allergy (Unknown, Verified 08/06/23 10:03) RASH dog dander [DOGS] Allergy (Unknown, Verified 08/06/23 10:03) DIFFICULTY BREATHING fluconazole [From DIFLUCAN] Allergy (Unknown, Verified 08/06/23 10:03) DIARRHEA levofloxacin [From LEVAQUIN] Allergy (Unknown, Verified 08/06/23 10:03) RASH milk [MILK] Allergy (Unknown, Verified 08/06/23 10:03) HIVES Penicillins [PENICILLINS] Allergy (Unknown, Verified 08/06/23 10:03) HIVES pollen extracts [POLLEN] Allergy (Unknown, Verified 08/06/23 10:03) DIFFICULTY BREATHING oxycodone [OXYCODONE] Adverse Reaction (Unknown, Verified 08/06/23 10:03) VOMITING Medication List - Last Reconciled 08/06/23 by Beto Ba MD bupropion HCl SR 150 mg PO DAILY 90 days sulfacetamide sodium (acne) 10% mL topical Tobacco use date assessed: 08/06/23 Dental Screening Dental Screen Date: 08/06/23 Did you have a dental visit in the last 12 months?: Yes Did you have a dental problem in the last 6 months where you did not have access to dental care?: No Was dental information given to patient?: Patient has dentist HPI 6m f/u HPI Details Patient comes in today for her follow up visit States that she feels okay - still has her usual aches and pains but states that overall, she feels the same She denies any headaches or dizziness Denies any chest pains, no increased SOB although she notes some decline in her activity tolerance at times - is not sure if this is normally seen in aging No nausea/vomiting, no abdominal pain No change in bowel habits noted Is requesting for a printed Rx for Avar-E LS cream - states that she uses this for her acne and prefers to continue with this but is aware that her insurance will not cover the Rx States that she has been able to locate a local pharmacy where she can use the Good Rx tamara and get the Rx for about $87 but will need a printed copy of her Rx for this reason [facility]LY [facility] Medical History Depression Anxiety Chronic fatigue Mitral valve prolapse Migraine Osteoarthritis of cervical spine Surgical History No pertinent past surgical history Family History Father CVD (cardiovascular disease) Mother No problems noted. Other Mental health problem Social History Housing: Condominium Alcohol intake: never Patient Tobacco Use Status: Never used Tobacco e-Cigarette/Vaping Use: Never Used Second Hand Smoke Exposure: No service: No Current occupational status: disabled Cognitive needs: No Hearing needs: No Vision needs: No Questionnaire PHQ-9 Over the last 2 weeks, how often have you been bothered by any of the following problems? 1. Little interest or pleasure in doing things: not at all 2. Feeling down, depressed, or hopeless: several days 3. Trouble falling or staying asleep, or sleeping too much: not at all 4. Feeling tired or having little energy: not at all 5. Poor appetite or overeating: not at all 6. Feeling bad about yourself - or that you are a failure or have let yourself or your family down: not at all 7. Trouble concentrating on things, such as reading the newspaper or watching television: not at all 8. Moving or speaking so slowly that other people could have noticed. Or the opposite - being so fidgety or restless that you have been moving around a lot more than usual: not at all 9. Thoughts that you would be better off or of hurting yourself in some way: not at all Total score: 1 Depression Screening Interpretation: Negative Depression Screening Done: Yes 91570 - PHQ-9 Billing: Yes Source: Developed by Drs. Ahmet Francis, Peyton Tubbs, Gabriel Nicholson and colleagues, with an educational benson from [employer]. Thrive Questionnaire Date Thrive assessed: 08/06/23 I am a: Patient What is your living situation today?: I have a steady place to live Within the past 12 months, did the food you bought not last and you didn't have the money to get more?: Never true Within the past 12 months, did you worry whether your food would run out before you got money to buy more?: Never true Do you have trouble paying for medicines?: No Do you have trouble getting transportation to medical appointments?: No Do you have trouble paying your heating and electricity bill?: No Do you have trouble taking care of your child, family member or friend?: No Do you have trouble with day-to-day activities such as bathing, preparing meals, shopping, managing finances, etc.?: No Are you currently unemployed and looking for a job?: No Are you interested in more education?: No Please select the resources that you would like help with: None Currently or been in a relationship where the following occur: no concerns reported THRIVE Score: 0 AUDIT C Alcohol Use Questionnaire (AUDIT-C) 1. How often do you have a drink containing alcohol?: Never 3. How often do you have six or more drinks on one occasion?: Never Total Score: 0 Score Reviewed/Action Taken: Yes FITO-7 AMB Questionnaire FITO-7 Date FITO - 7 assessed: 08/06/23 Feeling nervous, anxious, or on edge: 0 = Not at all Not being able to stop or control worryin = Several days Worrying too much about different things: 0 = Not at all Trouble relaxin = Not at all Being so restless that it is hard to sit still: 0 = Not at all Becoming easily annoyed or irritable: 0 = Not at all Feeling afraid as if something awful might happen: 0 = Not at all Total FITO-7 score (0-4 normal; 5-9 mild; 10-14 moderate; 15-21 severe): 1 Source: Developed by Drs. Ahmet Francis, Peyton Tubbs, Gabriel Nicholson and colleagues, with an educational benson from [employer]. Review of Systems Const Denies chills, Reports difficulty sleeping, Reports fatigue, Denies fever(s) and Denies headache(s) ENT Denies dysphagia, Denies dizziness, Denies otalgia, Denies headache(s), Reports neck pain (on and off), Denies odynophagia and Denies sore throat Card Denies chest pain, Reports palpitations (occasional fluterring sensation in heart,usually when she feels stressed) and Denies dyspnea Resp Denies cough, Denies dyspnea and Denies wheezing GI Denies abdominal pain, Denies constipation, Denies dysphagia, Denies heartburn, Denies diarrhea, Denies nausea, Denies odynophagia and Denies vomiting Denies difficulty voiding, Denies nocturia, Denies dysuria and Denies urinary urgency Musc Reports back pain (on and off over the lower back), Reports arthralgias (on and off), Reports neck pain (on and off) and Reports stiffness (in the neck) Skin/Breast Reports acne and Denies rash Neuro Denies dizziness and Denies headache(s) Psych Reports anxiety Endo Reports fatigue and Reports palpitations (occasional fluterring sensation in heart,usually when she feels stressed) Aller/Immun Denies wheezing Physical exam (Primary Care) Vital Signs: Last Vital Signs Pulse 73 08/06/23 09:15 BP 90/62 08/06/23 09:15 Pulse Ox 98 08/06/23 09:15 Oxygen Delivery Method Room Air 08/06/23 09:15 BMI result Body Mass Index 21.9 Tobacco/Smoking Status: Tobacco use Status Tobacco use date assessed 08/06/23 08/06/23 09:17 Patient Tobacco Use Status Never used Tobacco 08/06/23 09:17 e-Cigarette/Vaping Use Never Used 08/06/23 09:17 PHQ-9: PHQ-9 Score PHQ-9: Total score 1 08/06/23 10:09 Depression Screening Interpretation: Negative Thrive Assessment: Date of Thrive Assessment Date Thrive assessed 08/06/23 08/06/23 09:17 Currently or been in a relationship where the following occur: no concerns reported Const General: no acute distress and alert HENMT Ears: TM's normal bilaterally and EAC's normal Throat: Yes posterior oropharynx normal and Yes tonsils normal (no TP congestion noted) Neck Neck: Yes no lymphadenopathy and Yes tender (mild, over the cervical spine on palpation) Thyroid: Thyroid normal Resp Auscultation: clear to auscultation bilaterally, no rales and no wheezes Cardio Rate: regular rate Rhythm: regular rhythm Heart sounds: no murmurs GI Palpation (GI): Soft to palpation and nontender Auscultation: normal bowel sounds General: Yes no CVA tenderness Back/Spine/Pelvis Back: no CVA tenderness Thoracic/Lumbar Spine: No lumbar spinal tenderness Skin Rashes: no rashes Extrem General: Yes no clubbing, cyanosis or edema Assessment and Plan Assessment & Plan (1) Chronic fatigue: Code(s): R53.82 - Chronic fatigue, unspecified Plan: Discussed with patient again that this is most likely related to her mood disorder Have advised her of option to refer her to sleep medicine for further evaluation but patient has declined offer but she will call for referral if she decides to pursue this in the future Her labs done back in September 2022 were all within normal limits (2) Migraine: Code(s): G43.909 - Migraine, unspecified, not intractable, without status migrainosus Qualifiers: Migraine type: unspecified Status migrainosus presence: without status migrainosus Intractability: not intractable Qualified Code(s): G43.909 - Migraine, unspecified, not intractable, without status migrainosus Plan: Stable Reinforced again avoidance of migraine triggers Continue OTC Excedrin Migraine and/or Fioricet 50-325-40 mg 2 to 3 times a day only as needed (3) Mitral valve prolapse: Comment: Echocardiogram done in June 2015 came out normal Code(s): I34.1 - Nonrheumatic mitral (valve) prolapse Plan: She has been advised by cardiology that she had a normal EKG and her echocardiogram done in 2016 also came out normal, and without any significant family history of CAD, she does not require any further cardiac work ups and just needs to see or follow up with cardiology as needed She was seen by [facility] (per her request) sometime in August 2022 and had several work ups done, including a 14-day ZIO XT patch as well as an exercise nuclear stress test Echocardiogram done back on 04/30/22 revealed a normal LVEF of 55 to 60%, with no regional wall motion abnormalities; RV is normal is size and function and there is mild prolapse of the posterior mitral valve leaflet and trace mitral regurgitation but a follow up echo in 2016 was reportedly normal States that she was never called up again after her tests so she assumed all of her work ups were normal Will have her repeat her echocardiogram for follow up as it has been about 8 years now since she had a follow up echo for her MVP Follow up with cardiology as needed (4) Osteoarthritis of cervical spine: Comment: [place] [facility] [place] showed (+) degenerative changes at C5 - C6 Code(s): M47.812 - Spondylosis without myelopathy or radiculopathy, cervical region Qualifiers: Spinal osteoarthritis complication: unspecified spinal osteoarthritis Qualified Code(s): M47.812 - Spondylosis without myelopathy or radiculopathy, cervical region Plan: Patient reminded again to continue with the neck stretching exercises as previously instructed regularly to help manage her neck pains better May continue using OTC topical meds and patches PRN for symptomatic relief (5) Acne vulgaris: Code(s): L70.0 - Acne vulgaris Plan: Per request, Rx fro Avar-E LS cream printed out and given to patient (6) Anxiety: Code(s): F41.9 - Anxiety disorder, unspecified Plan: Is on Wellbutrin SR 150 mg QD, which she states has been helping with her anxiety and does not wish to have her Rx dose increased/adjusted further at this time (7) Depression: Code(s): F32.9 - Major depressive disorder, single episode, unspecified Qualifiers: Depression Type: dysthymia Qualified Code(s): F34.1 - Dysthymic disorder Plan: Continue Wellbutrin SR 150 mg QD Plan Follow up in 6 months Orders: Orders CA echo transthoracic complete Today I34.1 - Nonrheumatic mitral (valve) prolapse Medications: New sulfacetamide sodium-sulfur 10-2 % (Avar-E LS) lather on wet skin; leave on for 10-20 seconds; rinse 1 appl topical BID 57 grams 1RF L70.0 - Acne vulgaris Coding Level of Care Code Est Pt Level 4 (40273) Diagnoses Chronic fatigue R53.82 Migraine without status migrainosus, not intractable, unspecified migraine type G43.909 Migraine type: unspecified Status migrainosus presence: without status migrainosus Intractability: not intractable Mitral valve prolapse I34.1 Osteoarthritis of cervical spine, unspecified spinal osteoarthritis complication status M47.812 Spinal osteoarthritis complication: unspecified spinal osteoarthritis Acne vulgaris L70.0 Anxiety F41.9 Dysthymia F34.1 Depression Type: dysthymia
== END 2023-08-06 10:18 | disposition home or self-care (01) ==
PROVIDERS: PCP Internal Medicine; Visit Provider Internal Medicine
DX: R53.82 Chronic fatigue, unspecified (principal); G43.909 Migraine, unspecified, not intractable, without status migrainosus; I34.1 Nonrheumatic mitral (valve) prolapse; M47.812 Spondylosis without myelopathy or radiculopathy, cervical region; L70.0 Acne vulgaris; F41.9 Anxiety disorder, unspecified; F34.1 Dysthymic disorder
CPT/HCPCS: 99214

== ENCOUNTER 2023-08-17 14:12 | Outpatient (REF) | payer MEDICARE, SELFPAY ==
[2023-08-17 15:35] LABS: Appearance Urine Clear; Color Urine Yellow; Glucose Urine UA Negative (Negative); Leukocyte Esterase Urine Trace (Negative); Nitrite Urine Negative (Negative); UMIC TRIGGER UACC YES; Urine Blood Negative (Negative); Urine Ketones Negative (Negative); Urine Protein Negative (Neg-Trace)
[2023-08-17 15:38] LABS: Bacteria Urine None Seen (None Seen); Hyaline Casts Urine 0-2 /LPF (0-2); RBC Urine 0-2 /HPF (0-2); Squamous Epithelial Cell Urine 0-2 /HPF (0-2); WBC Urine 0-5 /HPF (0-5)
[2023-08-24 19:08] LABS: Class Alternaria alternata 0; Class Aspergillus fumigatus 0; Class Bermuda Grass 0; Class Birch 0; Class Cat Dander 0; Class Cladosporium herbarum 0; Class Cockroach 0; Class Common Ragweed 0; Class Cottonwood 0; Class Derm. pterony 0; Class Dermatophagoides farinae 0; Class Dog Dander 0; Class Elm 0; Class Maple Box Elder 0; Class Mountain Cedar 0; Class Mouse Urine Protein 0; Class Mugwort 0; Class Oak 0; Class Penicillium crysogenum 0; Class Rough Pigweed 0; Class Sheep Sorrel 0; Class Sycamore 0; Class Timothy Grass 0; Class Walnut Tree 0; Class White Ash 0; Class White Mulberry 0; D001 IgE D pteronyssinus <0.10 kU/L; D002 - IgE D farinae <0.10 kU/L; E001 - IgE Cat Dander <0.10 kU/L; E005 - IgE Dog Dander <0.10 kU/L; E072-IgE Mouse Urine <0.10 kU/L; G002 IgE Bermuda Grass <0.10 kU/L; G006 - IgE Timothy Grass <0.10 kU/L; I006-IgE Cockroach, German <0.10 kU/L; Immunoglobulin E 24 kU/L (<OR=114); M001 IgE Penicillium chrysogen <0.10 kU/L; M002 - IgE Cladosporium herbar <0.10 kU/L; M003 - IgE Aspergillus fumigat <0.10 kU/L; M006 - IgE Alternaria alternat <0.10 kU/L; T001 IgE Maple/Box Elder <0.10 kU/L; T003 IgE Common Silver Birch <0.10 kU/L; T006 - IgE Cedar, Mountain <0.10 kU/L; T007 - IgE Oak, White <0.10 kU/L; T008 IgE Elm, American <0.10 kU/L; T010 - IgE Walnut <0.10 kU/L; T011 - IgE Maple Leaf Sycamore <0.10 kU/L; T014 - IgE Cottonwood <0.10 kU/L; T015 - IgE Ash, White <0.10 kU/L; T070 - IgE White Mulberry <0.10 kU/L; W001 - IgE Ragweed, Short <0.10 kU/L; W006 - IgE Mugwort <0.10 kU/L; W014 IgE Pigweed, Common <0.10 kU/L; W018 IgE Sheep Sorrel <0.10 kU/L
[2023-08-28 02:33] LABS: IgE Antibody (Anti-IgE IgG) 10 ng/mL (<168)
== END 2023-08-17 14:13 | disposition home or self-care (01) ==
LOC: HO.LAB 14:12
PROVIDERS: PCP Internal Medicine; Visit Provider Internal Medicine
DX: Z00.00 Encounter for general adult medical examination without abnormal findings (principal); R30.0 Dysuria; I34.1 Nonrheumatic mitral (valve) prolapse; T78.40XA Allergy, unspecified, initial encounter; X58.XXXA Exposure to other specified factors, initial encounter; Z77.120 Contact with and (suspected) exposure to mold (toxic)
CPT/HCPCS: 36415; 81001; 82785; 83520; 86003

== ENCOUNTER → 2023-09-02 07:37 | Outpatient (REF) | payer MEDICARE, SELFPAY ==
--- NOTE | 2023-09-02 07:39 | CA_ITS ---
Transthoracic Echocardiogram Patient (Last, First, Middle): Yen Bone D Gender: Female Date of : 1965 Age: 57 Procedure Date: 09/02/2023 Procedure Type: Transthoracic Echocardiogram Location: OP Height: 157.48 cm Weight: 54.89 kg BSA: 1.54 m2 Heart Rate: bpm BP: 90 / 62 mmHg Beef Selector: TO Referring MD: Beto Ba MD Armature Repairer: Venancio Castillo MD Symptoms: I34.1 - Nonrheumatic mitral (valve) prolapse Study Quality: Adequate ECG Rhythm: Sinus Conclusions: - 1. Normal LV systolic and diastolic function 2. Normal cardiac valvular Dopplers with mild prolapse of the posterior leaflet 3. Normal RV systolic pressure 4. No gross pericardial effusion Findings Left Ventricle Normal left ventricular size, thickness, and systolic function. The visually estimated ejection fraction is between 60-65%. There is no evidence of regional wall motion abnormalities. Diastolic function is normal for age. Right Ventricle Normal right ventricular cavity size and systolic function. Atria Both atria are normal in size. There is no evidence of interatrial shunt. Aortic Valve Normal aortic valve structure and function. There is no aortic valve stenosis. There is no aortic valve regurgitation. Mitral Valve There is mild anterior and posterior mitral leaflet thickening. There is mild posterior mitral leaflet prolapse. There is trace mitral valve regurgitation. There is no mitral valve stenosis. Pulmonic Valve The pulmonic valve is likely normal. There is trace pulmonic valve regurgitation. Tricuspid Valve Normal tricuspid valve structure. There is trace tricuspid valve regurgitation. The right ventricular systolic pressure is normal. The right ventricular systolic pressure is 11 mmHg. Normal right atrial pressure. There is no evidence of pulmonary hypertension. Great Vessels All visible segments of the aorta are normal in size. The pulmonary artery was not well visualized. There is no dilatation of the ascending aorta measuring 3.10 cm. Venous The inferior vena cava is normal in size and collapses greater than 50% with inspiration. Pericardium/Pleural There is no evidence of pericardial effusion. Prior Study Comparison no previous study in the last 5 years for comparison Measurements 2D Linear Measurements IVSd: 0.86 0.6-0.9/0.6-1.0 cm LVIDd: 4.13 3.9-5.3/4.2-5.9 cm LVIDd Index: 2.68 2.4-3.2/2.2-3.1 cm/m2 LVIDs: 2.71 2.0-3.6 cm LVPWd: 0.56 0.7-1.1 cm LA Diam: 2.50 2.7-3.8/3.0-4.0 cm LAIDs Index: 1.62 1.5-2.3 cm/m2 LV Mass: 103.95 67-162/88-224 g LV Mass Index: 67.50 43-95/49-115 g/m2 LVOT Diam: 1.90 3.0+(-)1.3 cm 2D Systolic Function EF 4C: 59.70 >55% EF 2C: 60.70 >55% EF BiP: 60.60 >55% Mitral Valve MV Pk E: 0.65 MV PK A: 0.43 MV Decel Time: 222.00 E/A: 1.50 E'Lateral: 12.00 E'Medial: 7.94 E/E' Med: 8.20 E/E' Lat: 5.40 PHT: 65.00 MVA PHT: 3.38 Decel [place]: 2.93 Aortic Valve AoV Pk Sean: 1.12 AoV Mn Sean: 0.70 AoV VTI: 0.22 AoV Pk Grad: 5.00 Aov Mn Grad: 2.00 TRACIE Cont.VTI: 2.24 LVOT LVOT Pk Sean: 0.75 LVOT Mn Sean: 0.52 LVOT VTI: 0.17 LVOT Pk Grad: 2.00 LVOT Mn Grad: 1.00 LVOT Diam: 1.90 LVOT Area: 2.84 Diastolic Function MV Pk E: 0.65 MV Pk A: 0.43 E/A: 1.50 E'Medial: 7.94 E/E' Med: 8.20 E' Laterial: 12.00 E/E' Lat: 5.40 Right Ventricle TAPSE (mm): 18.60 TVS' Sean: 10.10 Tricuspid Valve TR Pk Sean: 1.38 TR Pk Grad: 8.00 RA Press: 3.00 RVSP: 11.00 Great Vessels Aorta Sinus of Valsalva: 3.84 2.0-3.[address] [place]: 2.56 1.7-3.4 cm Ao Asc: 3.10 2.1-3.4 cm Ao Arch: 2.40 Updated in Other Vendor System with Status of Final Venancio Castillo MD electronically signed on 09/02/2023 4:04:09 PM with status of Final
== END ==
LOC: HO.CARD 07:37
PROVIDERS: PCP Internal Medicine; Visit Provider Internal Medicine
DX: I34.1 Nonrheumatic mitral (valve) prolapse (principal)
CPT/HCPCS: 93306

== ENCOUNTER → 2023-09-02 07:39 | Outpatient (BNV) | payer MEDICARE, SELFPAY | PROVIDERS: PCP Internal Medicine; Visit Provider Internal Medicine Cardiovascular Disease | DX: I34.1 Nonrheumatic mitral (valve) prolapse (principal) | CPT/HCPCS: 93306 ==

== ENCOUNTER 2023-12-15 13:34 | Outpatient (AMB) | payer MEDICARE, SELFPAY ==
--- NOTE | 2023-12-15 13:36 | AM.OFFVISMDC ---
Intake Vital Signs 12/15/23 13:38 Height 5 ft 2 in Weight 121 lb 6 oz BMI 22.2 BP 118/62 Blood Pressure Location Lt brachial Position Sitting Pulse 60 Pulse Source Pulse Oximeter Pulse Oximetry (%) 97 Oxygen Delivery Method Room Air Intake Visit Reasons: GULSHAN G0439 Intake Note: Patient is here for an Annual Wellness Visit. 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 Cashier Or Checker Stock Clerk: Cashier Or Checker Stock Clerk Present and Cashier Or Checker Stock Clerk offered & declined Accompanied by: Spouse Allergies codeine [CODEINE] Allergy (Unknown, Verified 12/15/23 14:13) RASH dog dander [DOGS] Allergy (Unknown, Verified 12/15/23 14:13) DIFFICULTY BREATHING fluconazole [From DIFLUCAN] Allergy (Unknown, Verified 12/15/23 14:13) DIARRHEA levofloxacin [From LEVAQUIN] Allergy (Unknown, Verified 12/15/23 14:13) RASH milk [MILK] Allergy (Unknown, Verified 12/15/23 14:13) HIVES Penicillins [PENICILLINS] Allergy (Unknown, Verified 12/15/23 14:13) HIVES pollen extracts [POLLEN] Allergy (Unknown, Verified 12/15/23 14:13) DIFFICULTY BREATHING oxycodone [OXYCODONE] Adverse Reaction (Unknown, Verified 12/15/23 14:13) VOMITING Medication List - Last Reconciled 12/15/23 by Beto Ba MD bupropion HCl SR 150 mg PO DAILY 90 days sulfacetamide sodium (acne) 10% mL topical sulfacetamide sodium-sulfur 10-2 % (Avar-E LS) 1 appl topical BID HPI SWV [id number] HPI Details Patient comes in today for her Annual Medicare Wellness Exam States that she feels okay but woke up yesterday morning with some redness and soreness over her left upper eyelid, which she noticed was also slightly swollen States that she has been applying some warm compress over her left eye/eyelid PRN since then with some relief of her symptoms She denies any acute vision issues but admits to some blurring of vision and has been advised by her eye doctor a while back to get some readers She denies any headaches or dizziness Denies any chest pains, no increased SOB No nausea/vomiting, no abdominal pain No change in bowel habits noted [place] of care was reviewed and updated today Patient has a healthcare proxy in place and on file IPPE/AWV: c/o of Annual Wellness Visit, subsequent visit. Medical / Social History Reviewed Past Medical History Yes . [place] of Care / Care Team list updated Yes . Surgical/Hospitalization History Yes . Current Medications (including OTC and supplements) Yes . Family History Yes . Tobacco Control form Yes . AUDIT-C (Alcohol use) form Yes . Illicit drug use in Social History Yes . Current diagnosis of depression? No Appropriate PHQ2/PHQ9 completed Yes . Data entered by [employer] and reviewed by provider Home Safety Throw rugs? No Grab bars? No Raised toilet seats? No Working smoke detectors? Yes Working carbon monoxide detectors? Yes Data entered by [employer] and reviewed by provider Activities of Daily Living (ADLs) Difficulty bathing or showering? No Difficulty dressing? No Difficulty using the toilet? No Difficulty getting in and out of bed? No Difficulty walking? No Receives help from another person with any of the above tasks? No Instrumental Activities of Daily Living (IADLs) Uses the telephone without help Gets to places out of walking distance without help Goes shopping for groceries without help Prepares own meals without help Does own minor home maintenance without help Does own laundry without help Does own housework without help Manages own money without help Currently takes medications? Yes Takes medication without help End-of-Life Planning Discussed advance directive Yes Advance directive on file Discussed wishes expressed in advance directive agreed to following patient's wishes Fall Risk: Fall History Have you had any falls with injury in the past year? No . Have you had two or more falls in the past year? No . Fall Risk Assessment: No falls in the past year . HRA filled out by the patient, reviewed by Provider and scanned. [facility] Medical History Depression Anxiety Chronic fatigue Mitral valve prolapse Migraine Osteoarthritis of cervical spine Surgical History No pertinent past surgical history Family History Father CVD (cardiovascular disease) Mother No problems noted. Other Mental health problem Social History Housing: Condominium Alcohol intake: never Patient Tobacco Use Status: Never used Tobacco e-Cigarette/Vaping Use: Never Used Second Hand Smoke Exposure: No service: No Current occupational status: disabled Cognitive needs: No Hearing needs: No Vision needs: No Questionnaire Medicare Wellness Checkup What [age] 65-69 (58) What gender do you identify with?: female During the past 4 weeks, how much have you been bothered by emotional problems such as feeling anxious, depressed, irritable, sad or downhearted, and blue?: moderately During the past 4 weeks, has your physical & emotional health limited your social activities with family, friends, neighbors, or groups?: slightly During the past 4 weeks, how much bodily pain have you generally had?: moderate pain During the past 4 weeks, was someone available to help you if you needed & wanted help?: yes, as much as I wanted During the past 4 weeks, what was the hardest physical activity you could do for at least 2 minutes?: moderate Can you get to places out of walking distance without help? (For eg., can you travel alone on buses, taxis or drive your car?): Yes Can you go shopping for groceries or clothes without someone's help?: Yes Can you prepare your own meals?: Yes Can you do your housework without help?: No Because of any health problems, do you need the help of another person with your personal care needs such as eating, bathing, dressing or getting around the house?: No Can you handle your own money without help?: Yes During the past 4 weeks, how would you rate your health in general?: fair During the past 4 weeks how have things been going for you?: good & bad parts about equal Are you having difficulties driving your car?: sometimes Do you always fasten your seat belt when you are in a car?: yes, usually During past 4 weeks, have you been bothered by the following: never: Problems using the telephone?, seldom: Sexual problems? and Teeth or denture problems?, sometimes: Falling or dizzy when standing up and Trouble eating well? and always: Tiredness or fatigue? Have you fallen 2 or more times in the past year?: Yes Are you afraid of falling?: Yes Are you a smoker?: no During the past 4 weeks, how many drinks of wine, beer, or other alcoholic beverages did you have?: no alcohol at all Do you exercise for about 20 minutes 3 or more times a week?: no, I usually do not exercise this much Have you been given information to help with the following?: no: Hazards in your house that might hurt you? How often do you have trouble taking medicines the way you have been told to take them?: I always take medicine as prescribed How confident are you that you can control & manage most of your health problems?: somewhat confident What is your race?: or origin or descent Mini Mental State Exam (MMSE) Orientation What is the (year) (season) (date) (day) (month)?: year, season, date, day and month Where are we (state) (county) (town or city) (hospital) (floor)?: state, county, town or city, hospital/clinic and floor Score Score: 10 Activity of Daily Living Bathing - sponge bath, tub bath or shower: receives no assistance (gets in/out by self, if usual bathing means Dressing - getting clothes from closets & drawers, including inner/outer garments & fasteners.: gets clothes & gets completely dressed without help Toileting - going to the 'toilet room' for urine/bowel elimination & cleaning self/arranging clothes: goes to toilet room, cleans self, arranges clothes without help Transfer: moves in & out of bed and chair without help (may use support object) Continence: controls urination/bowel movements completely by self Feeding: feeds self without help Total Score: 0 Information obtained from: patient Using telephone: independent Traveling: independent Shopping: independent Preparing meals: independent Housework: independent Taking medicine: independent Managing money: independent PHQ-9 Over the last 2 weeks, how often have you been bothered by any of the following problems? 1. Little interest or pleasure in doing things: several days 2. Feeling down, depressed, or hopeless: several days 3. Trouble falling or staying asleep, or sleeping too much: more than half the days 4. Feeling tired or having little energy: nearly every day 5. Poor appetite or overeating: not at all 6. Feeling bad about yourself - or that you are a failure or have let yourself or your family down: not at all 7. Trouble concentrating on things, such as reading the newspaper or watching television: several days 8. Moving or speaking so slowly that other people could have noticed. Or the opposite - being so fidgety or restless that you have been moving around a lot more than usual: not at all 9. Thoughts that you would be better off or of hurting yourself in some way: not at all Total score: 8 Depression Screening Interpretation: Positive Depression Screening Follow-up: Existing condition and In treatment Depression Screening Done: Yes 70679 - PHQ-9 Billing: Yes Source: Developed by Drs. Ahmet Francis, Peyton Tubbs, Gabriel Nicholson and colleagues, with an educational benson from [employer]. Thrive Questionnaire Date Thrive assessed: 12/15/23 I am a: Patient What is your living situation today?: I have a steady place to live Within the past 12 months, did the food you bought not last and you didn't have the money to get more?: Never true Within the past 12 months, did you worry whether your food would run out before you got money to buy more?: Never true Do you have trouble paying for medicines?: No Do you have trouble getting transportation to medical appointments?: No Do you have trouble paying your heating and electricity bill?: No Do you have trouble taking care of your child, family member or friend?: No Do you have trouble with day-to-day activities such as bathing, preparing meals, shopping, managing finances, etc.?: No Are you currently unemployed and looking for a job?: No Are you interested in more education?: No Please select the resources that you would like help with: None Currently or been in a relationship where the following occur: No concerns reported THRIVE Score: 0 FITO-7 AMB Questionnaire FITO-7 Date FITO - 7 assessed: 08/06/23 Source: Developed by Drs. Ahmet Francis, Peyton Tubbs, Gabriel Nicholson and colleagues, with an educational benson from [employer]. AUDIT C Alcohol Use Questionnaire (AUDIT-C) 1. How often do you have a drink containing alcohol?: Never 3. How often do you have six or more drinks on one occasion?: Never Total Score: 0 Score Reviewed/Action Taken: Yes Review of Systems Const Denies chills, Reports difficulty sleeping, Reports fatigue, Denies fever(s) and Denies headache(s) Eyes Details: (+) mild redness and swelling of the left upper eyelid Reports blurry vision (needs readers ) ENT Denies dysphagia, Denies dizziness, Denies otalgia, Denies headache(s), Reports neck pain (on and off), Denies odynophagia and Denies sore throat Card Denies chest pain, Reports palpitations (occasional fluterring sensation in heart,usually when she feels stressed) and Denies dyspnea Resp Denies chest congestion, Denies cough and Denies dyspnea GI Denies abdominal pain, Denies constipation, Denies dysphagia, Denies heartburn, Denies diarrhea, Denies nausea, Denies odynophagia and Denies vomiting Denies difficulty voiding, Denies nocturia, Denies dysuria and Denies urinary urgency Musc Reports back pain (on and off over the lower back), Reports arthralgias (on and off), Reports neck pain (on and off) and Reports stiffness (in the neck) Skin/Breast Reports acne and Denies rash Neuro Denies dizziness and Denies headache(s) Psych Reports anxiety Endo Reports fatigue and Reports palpitations (occasional fluterring sensation in heart,usually when she feels stressed) Physical Exam Vital Signs: Last Vital Signs Pulse 60 12/15/23 13:38 BP 118/62 12/15/23 13:38 Pulse Ox 97 12/15/23 13:38 Oxygen Delivery Method Room Air 12/15/23 13:38 BMI result Body Mass Index 22.2 IPPE/AWV: Balance Romberg Yes . Tandem walk Yes . Walk and Turn Yes . Rise from sit to stand Yes . Vision Corrective lens No Vision screen pass Hearing Whisper test pass . Urinary incont. no. EKG Not clinically necessary. Const General: no acute distress and alert Orientation/consciousness: patient oriented x3 Eyes Eyelids: Yes eyelid abnormality ((+) mild erythema and edema of the left upper eyelid) Conjunctivae: conjunctivae normal Pupils: Equal, round and reactive pupils present EOM: EOMs intact bilaterally Neuro General: patient oriented x3 Cranial nerves: Yes Equal, round and reactive pupils present Cognition (Neuro): normal cognition Gait exam (Neuro): Normal gait present Psych Thought process: Normal thought process present Assessment & Plan Assessment & Plan (1) Medicare annual wellness visit, subsequent: Code(s): Z00.00 - Encounter for general adult medical examination without abnormal findings Plan: DENNIS updated HRA form discussed and completed with patient; form will be scanned into patient's chart (2) Sty, external: Code(s): H00.019 - Hordeolum externum unspecified eye, unspecified eyelid Qualifiers: Laterality: left Eyelid: upper Qualified Code(s): H00.014 - Hordeolum externum left upper eyelid Plan: Patient is advised to continue applying warm compress to her left upper eyelid PRN for symptomatic relief She is reassured that her left eyelid symptoms should gradually resolved with conservative management over the next few days and to call if her symptoms persist or worsen Plan Follow up as scheduled in January 2024 Quality Reporting (2019) Depression/Bipolar (159/160/161/177) PHQ-9: Total score: 8 Coding Level of Care Code Medicare Subsequent (G0439) Est Pt Level 3 (93261) Diagnoses Medicare annual wellness visit, subsequent Z00.00 Hordeolum externum of left upper eyelid H00.014 Laterality: left Eyelid: upper
[2023-12-15 13:38] VITALS: BP 118/62; PULSE 60; O2SAT 97; BMI 22.2
== END 2023-12-15 14:32 | disposition home or self-care (01) ==
LOC: HO.HMCH 13:34
PROVIDERS: PCP Internal Medicine; Visit Provider Internal Medicine
DX: Z00.00 Encounter for general adult medical examination without abnormal findings (principal); H00.014 Hordeolum externum left upper eyelid

== ENCOUNTER → 2023-12-15 13:34 | Outpatient (BNVA) | payer MEDICARE, SELFPAY | PROVIDERS: PCP Internal Medicine; Visit Provider Internal Medicine | DX: Z00.00 Encounter for general adult medical examination without abnormal findings (principal); H00.014 Hordeolum externum left upper eyelid | CPT/HCPCS: 99212 ==

== ENCOUNTER 2024-02-04 09:14 | Outpatient (AMB) | payer MEDICARE, SELFPAY ==
--- NOTE | 2024-02-04 09:18 | A.OFFPC_ITS ---
Vital Signs 02/04/24 09:19 Height 5 ft 2 in Weight 122 lb BMI 22.3 BP 110/72 Blood Pressure Location Lt brachial Position Sitting Pulse 80 Pulse Source Pulse Oximeter Pulse Oximetry (%) 99 Oxygen Delivery Method Room Air Intake Visit Reasons: mitral valve prolapse, anxiety Earth Boring Machine Operator Required: No Accompanied by: Self / Same As Patient Allergies codeine [CODEINE] Allergy (Unknown, Verified 02/04/24 10:18) RASH dog dander [DOGS] Allergy (Unknown, Verified 02/04/24 10:18) DIFFICULTY BREATHING fluconazole [From DIFLUCAN] Allergy (Unknown, Verified 02/04/24 10:18) DIARRHEA levofloxacin [From LEVAQUIN] Allergy (Unknown, Verified 02/04/24 10:18) RASH milk [MILK] Allergy (Unknown, Verified 02/04/24 10:18) HIVES Penicillins [PENICILLINS] Allergy (Unknown, Verified 02/04/24 10:18) HIVES pollen extracts [POLLEN] Allergy (Unknown, Verified 02/04/24 10:18) DIFFICULTY BREATHING oxycodone [OXYCODONE] Adverse Reaction (Unknown, Verified 02/04/24 10:18) VOMITING Medication List - Last Reconciled 02/04/24 by Beto Ba MD bupropion HCl SR 150 mg PO DAILY 90 days sulfacetamide sodium (acne) 10% mL topical sulfacetamide sodium-sulfur 10-2 % (Avar-E LS) 1 appl topical BID Tobacco use date assessed: 02/04/24 Dental Screening Dental Screen Date: 02/04/24 Did you have a dental visit in the last 12 months?: Yes Did you have a dental problem in the last 6 months where you did not have access to dental care?: No Was dental information given to patient?: Patient has dentist HPI mitral valve prolapse, anxiety HPI Details Patient comes in today for her follow up visit Reports that she is still experiencing recurrent low back pain and joint pains that involve multiple joints States that she often feels stiff but tries to work out and exercise regularly as previously advised She denies any headaches or dizziness Denies any chest pains, no shortness of breath No nausea/vomiting, no abdominal pain No change in bowel habits noted States that it is time again for her to do another Cologuard test She had her pap smear done about 2 to 3 yrs ago; states that 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 Other Mental health problem Social History Housing: Condominium Alcohol intake: never Patient Tobacco Use Status: Never used Tobacco e-Cigarette/Vaping Use: Never Used Second Hand Smoke Exposure: No service: No Current occupational status: disabled Cognitive needs: No Hearing needs: No Vision needs: No Questionnaire PHQ-9 Over the last 2 weeks, how often have you been bothered by any of the following problems? 1. Little interest or pleasure in doing things: several days 2. Feeling down, depressed, or hopeless: several days 3. Trouble falling or staying asleep, or sleeping too much: more than half the days 4. Feeling tired or having little energy: nearly every day 5. Poor appetite or overeating: not at all 6. Feeling bad about yourself - or that you are a failure or have let yourself or your family down: not at all 7. Trouble concentrating on things, such as reading the newspaper or watching television: several days 8. Moving or speaking so slowly that other people could have noticed. Or the opposite - being so fidgety or restless that you have been moving around a lot more than usual: not at all 9. Thoughts that you would be better off or of hurting yourself in some way: not at all Total score: 8 Depression Screening Interpretation: Positive Depression Screening Follow-up: Existing condition and In treatment Depression Screening Done: Yes 10731 - PHQ-9 Billing: Yes Source: Developed by Drs. Ahmet Francis, Peyton Tubbs, Gabriel Nicholson and colleagues, with an educational benson from [employer]. Thrive Questionnaire Date Thrive assessed: 02/04/24 I am a: Patient What is your living situation today?: I have a steady place to live Within the past 12 months, did the food you bought not last and you didn't have the money to get more?: Never true Within the past 12 months, did you worry whether your food would run out before you got money to buy more?: Never true Do you have trouble paying for medicines?: No Do you have trouble getting transportation to medical appointments?: No Do you have trouble paying your heating and electricity bill?: No Do you have trouble taking care of your child, family member or friend?: No Do you have trouble with day-to-day activities such as bathing, preparing meals, shopping, managing finances, etc.?: No Are you currently unemployed and looking for a job?: No Are you interested in more education?: No Please select the resources that you would like help with: None Currently or been in a relationship where the following occur: No concerns reported THRIVE Score: 0 AUDIT C Alcohol Use Questionnaire (AUDIT-C) 1. How often do you have a drink containing alcohol?: Never 3. How often do you have six or more drinks on one occasion?: Never Total Score: 0 Score Reviewed/Action Taken: Yes FITO-7 AMB Questionnaire FITO-7 Date FITO - 7 assessed: 02/04/24 Feeling nervous, anxious, or on edge: 0 = Not at all Not being able to stop or control worryin = Not at all Worrying too much about different things: 0 = Not at all Trouble relaxin = Not at all Being so restless that it is hard to sit still: 0 = Not at all Becoming easily annoyed or irritable: 0 = Not at all Feeling afraid as if something awful might happen: 0 = Not at all Total FITO-7 score (0-4 normal; 5-9 mild; 10-14 moderate; 15-21 severe): 0 Source: Developed by Drs. Ahmet Francis, Peyton Tubbs, Gabriel Nicholson and colleagues, with an educational benson from [employer]. Review of Systems Const Denies chills, Reports difficulty sleeping, Reports fatigue, Denies fever(s) and Denies headache(s) ENT Denies dysphagia, Denies dizziness, Denies otalgia, Denies headache(s), Reports neck pain (on and off), Denies odynophagia and Denies sore throat Card Denies chest pain, Reports palpitations (occasional fluttering sensation in heart, usually when she feels stressed) and Denies dyspnea Resp Denies chest congestion, Denies cough and Denies dyspnea GI Denies abdominal pain, Denies constipation, Denies dysphagia, Denies heartburn, Denies diarrhea, Denies nausea, Denies odynophagia and Denies vomiting Denies difficulty voiding, Denies nocturia, Denies dysuria and Denies urinary urgency Musc Reports back pain (on and off over the lower back), Reports arthralgias (on and off), Reports neck pain (on and off) and Reports stiffness (in the neck) Skin/Breast Denies rash Neuro Denies dizziness and Denies headache(s) Psych Reports anxiety Endo Reports fatigue and Reports palpitations (occasional fluttering sensation in heart, usually when she feels stressed) Physical exam (Primary Care) Vital Signs: Last Vital Signs Pulse 80 02/04/24 09:19 BP 110/72 02/04/24 09:19 Pulse Ox 99 02/04/24 09:19 Oxygen Delivery Method Room Air 02/04/24 09:19 BMI result Body Mass Index 22.3 Tobacco/Smoking Status: Tobacco use Status Tobacco use date assessed 02/04/24 02/04/24 09:20 Patient Tobacco Use Status Never used Tobacco 02/04/24 09:20 e-Cigarette/Vaping Use Never Used 02/04/24 09:20 PHQ-9: PHQ-9 Score PHQ-9: Total score 8 02/04/24 10:16 Depression Screening Interpretation: Positive Depression Screening Follow-up: Existing condition and In treatment Thrive Assessment: Date of Thrive Assessment Date Thrive assessed 02/04/24 02/04/24 09:20 Currently or been in a relationship where the following occur: No concerns reported Const General: no acute distress and alert HENMT Ears: TM's normal bilaterally and EAC's normal Throat: Yes posterior oropharynx normal and Yes tonsils normal (no TP congestion noted) Neck Neck: Yes no lymphadenopathy and Yes tender (mild, over the cervical spine on palpation) Thyroid: Thyroid normal Resp Auscultation: clear to auscultation bilaterally, no rales and no wheezes Cardio Rate: regular rate Rhythm: regular rhythm Heart sounds: no murmurs GI Palpation (GI): Soft to palpation and nontender Auscultation: normal bowel sounds General: Yes no CVA tenderness Back/Spine/Pelvis Back: no CVA tenderness Thoracic/Lumbar Spine: No lumbar spinal tenderness Skin Rashes: no rashes Extrem General: Yes no clubbing, cyanosis or edema Coding Level of Care Code Est Pt Level 4 (62705) Diagnoses Chronic fatigue R53.82 Migraine without status migrainosus, not intractable, unspecified migraine type G43.909 Migraine type: unspecified Status migrainosus presence: without status migrainosus Intractability: not intractable Mitral valve prolapse I34.1 Osteoarthritis of cervical spine, unspecified spinal osteoarthritis complication status M47.812 Spinal osteoarthritis complication: unspecified spinal osteoarthritis Anxiety F41.9 Dysthymia F34.1 Depression Type: dysthymia Screening for colon cancer Z12.11 Cervical cancer screening Z12.4 Additional Codes PHQ-9 - 97242 - PHQ-9 Billing: Yes ([id number]) Assessment & Plan Assessment & Plan (1) Chronic fatigue: Code(s): R53.82 - Chronic fatigue, unspecified Category: Medical Plan: Have discussed again with patient that this is most likely related to her mood disorder Have advised her of the option to refer her to sleep medicine for further evaluation but patient declined; states that she will call for referral if she decides to pursue this in the future (2) Migraine: Code(s): G43.909 - Migraine, unspecified, not intractable, without status migrainosus Category: Medical Qualifiers: Migraine type: unspecified Status migrainosus presence: without status migrainosus Intractability: not intractable Qualified Code(s): G43.909 - Migraine, unspecified, not intractable, without status migrainosus Plan: Stable Reinforced again avoidance of migraine triggers Continue OTC Excedrin Migraine and/or Fioricet 50-325-40 mg 2 to 3 times a day only as needed (3) Mitral valve prolapse: Comment: Echocardiogram done in June 2015 came out normal Code(s): I34.1 - Nonrheumatic mitral (valve) prolapse Category: Medical Plan: She has been advised by cardiology that she had a normal EKG and her echocardiogram done in 2016 also came out normal, and without any significant family history of CAD, she does not require any further cardiac work ups and just needs to see or follow up with cardiology as needed She was seen by [facility] (per her request) sometime in August 2022 and had several work ups done, including a 14-day ZIO XT patch as well as an exercise nuclear stress test Echocardiogram done back on 04/30/22 revealed a normal LVEF of 55 to 60%, with no regional wall motion abnormalities; RV is normal in size and function and there is mild prolapse of the posterior mitral valve leaflet and trace mitral regurgitation but a follow up echo in 2015 was reportedly normal States that she was never called up again after her tests so she assumed all of her work ups were normal We had her repeat her echocardiogram for follow up after her last visit and echo done in August 2023 revealed similar findings from last year - normal LV systolic and diastolic function, normal cardiac valvular Doppler with mild prolapse of the posterior leaflet, normal RV systolic pressure and no gross pericardial effusion Follow up with cardiology as needed (4) Osteoarthritis of cervical spine: Comment: Cervical spine x-[place] done [place] [facility] [place] in 2004 showed (+) degenerative changes at C5 - C6 Code(s): M47.812 - Spondylosis without myelopathy or radiculopathy, cervical region Category: Medical Qualifiers: Spinal osteoarthritis complication: unspecified spinal osteoarthritis Qualified Code(s): M47.812 - Spondylosis without myelopathy or radiculopathy, cervical region Plan: Patient reminded again to continue with the neck stretching exercises as previously instructed regularly to help manage her neck pains better May continue using OTC topical meds and patches PRN for symptomatic relief (5) Anxiety: Code(s): F41.9 - Anxiety disorder, unspecified Category: Medical Plan: She is on Wellbutrin SR 150 mg QD, which she states has been helping with her anxiety and does not wish to have her Rx dose increased/adjusted further at this time (6) Depression: Code(s): F32.9 - Major depressive disorder, single episode, unspecified Category: Medical Qualifiers: Depression Type: dysthymia Qualified Code(s): F34.1 - Dysthymic disorder Plan: Continue Wellbutrin SR 150 mg QD (7) Screening for colon cancer: Code(s): Z12.11 - Encounter for screening for malignant neoplasm of colon Category: Medical Plan: Per request, will have patient repeat her Cologuard test (8) Cervical cancer screening: Code(s): Z12.4 - Encounter for screening for malignant neoplasm of cervix Category: Medical Plan: Will also refer her to the [facility] [place] for her annual gynecology exam and pap smear Plan Follow up in 6 months Orders: Referrals Cologuard Test Z12.11 - Encounter for screening for malignant neoplasm of colon, Z12.12 - Encounter for screening for malignant neoplasm of rectum [facility] Referral Z12.4 - Encounter for screening for malignant neoplasm of cervix
[2024-02-04 09:19] VITALS: BP 110/72; PULSE 80; O2SAT 99; BMI 22.3
== END 2024-02-04 10:47 | disposition home or self-care (01) ==
PROVIDERS: PCP Internal Medicine; Visit Provider Internal Medicine
DX: R53.82 Chronic fatigue, unspecified (principal); G43.909 Migraine, unspecified, not intractable, without status migrainosus; I34.1 Nonrheumatic mitral (valve) prolapse; M47.812 Spondylosis without myelopathy or radiculopathy, cervical region; F41.9 Anxiety disorder, unspecified; F34.1 Dysthymic disorder; Z12.11 Encounter for screening for malignant neoplasm of colon; Z12.4 Encounter for screening for malignant neoplasm of cervix

== ENCOUNTER → 2024-02-04 09:14 | Outpatient (BNVA) | payer MEDICARE, SELFPAY | PROVIDERS: PCP Internal Medicine; Visit Provider Internal Medicine | DX: F41.9 Anxiety disorder, unspecified (principal); R53.82 Chronic fatigue, unspecified; G43.909 Migraine, unspecified, not intractable, without status migrainosus; I34.1 Nonrheumatic mitral (valve) prolapse; M47.812 Spondylosis without myelopathy or radiculopathy, cervical region; F34.1 Dysthymic disorder; Z12.4 Encounter for screening for malignant neoplasm of cervix | CPT/HCPCS: 96127; 99212 ==

== ENCOUNTER 2024-03-15 09:29 | Outpatient (REF) | payer MEDICARE, SELFPAY ==
--- OUTSIDE RECORDS SUMMARY | 2024-03-15 14:09 | XMS_ITS | Encounter Summary ---
Author Organization [facility] Address [address] [place] [address] [address] [place] [address] Care Team Providers Care Navigation Officer Name Role Phone Unavailable Primary Care Provider [...]
--- OUTSIDE RECORDS SUMMARY | 2024-03-15 14:09 | XMS_ITS | Encounter Summary ---
Author Organization [facility] Address [address] [place] [address] [address] [place] [address] Care Team Providers Care Network Relations Consultant Name Role Phone Unavailable Primary Care Provider [...]
--- OUTSIDE RECORDS SUMMARY | 2024-03-15 14:09 | XMS_ITS | Clinical Summary ---
Author Organization [employer] Address [address] [facility] [address] [place] [address] Care Team Providers Care Rotary Furnace Operator Name Role Phone Unavailable Primary Care Provider [...]
[2024-03-15 16:01] LABS: Influenza A PCR POSITIVE (Negative); Influenza B PCR NEGATIVE (Negative); Resp Syncy Virus RNA Qual PCR NEGATIVE (Negative); SARS COV2 PCR INHOUSE NEGATIVE (Negative)
== END 2024-03-15 09:30 | disposition home or self-care (01) ==
LOC: HO.LNP 09:29
PROVIDERS: Physician Assistant; PCP Internal Medicine
DX: J06.9 Acute upper respiratory infection, unspecified (principal)
CPT/HCPCS: 0241U; 99212

== ENCOUNTER 2024-03-15 09:29 | Outpatient (AMB) | payer MEDICARE, SELFPAY ==
--- OUTSIDE RECORDS SUMMARY | 2024-03-15 10:00 | XMS_ITS | Encounter Summary ---
Author Organization [employer] [facility] Address [address] [place] [address] [address] [place] [address] Care Team Providers Care Security System Analyst Name Role Phone Unavailable Primary Care Provider Unavailabl e Encounter Details Date Type Department Care Team (Latest Contact Info) Description 02/25/2019 Abstract C CONVERSIONS Dental, Provider, DDS Social History Tobacco Use Types Packs/Day Years Used Date Smoking Tobacco: Never Assessed Comments Unknown Sex and Gender Information Value Date Recorded Sex Assigned at Female 12/16/2021 10:24 AM EDT Legal Sex Female 10:24 AM EDT Gender Identity Not on file Sexual Orientation Not on file documented as of this encounter Plan of Treatment Not on file documented as of this encounter Visit Diagnoses Not on filedocumented in this encounter
--- OUTSIDE RECORDS SUMMARY | 2024-03-15 10:00 | XMS_ITS | Clinical Summary ---
Author Organization [employer] Address [address] [facility] [address] [place] [address] Care Team Providers Care Spiral Tube Winder Helper Name Role Phone Unavailable Primary Care Provider Unavailabl e Social History Tobacco Use Types Packs/Day Years Used Date Smoking Tobacco: Never Assessed Comments Unknown Sex and Gender Information Value Date Recorded Sex Assigned at Female 12/16/2021 10:24 AM EDT Legal Sex Female 10:24 AM EDT Gender Identity Not on file Sexual Orientation Not on file Plan of Treatment Health Maintenance Due Date Last Done Comments CT Colonography 1964 Colonoscopy 1964 Colorectal Cancer Screening 1964 Depression Screening 1964 FIT DNA/Cologuard 1964 FIT 1964 FOBT 1964 Sigmoidoscopy 1964 Alcohol/Substance Use Screening 1976 Tobacco Screening 1976 DTaP/Tdap/Td Vaccines (1 - Tdap) 11/14/1983 Hepatitis B Vaccines (1 of 3 - 19+ 3-dose series) 11/14/1983 Pap Smear 1985 Cervical Cancer Screening 1994 HPV/Cotest 1994 Mammogram 2004 Zoster Vaccines (1 of 2) 2014 COVID-19 Vaccine ( - 2023-2 5 season) 2023 Influenza Vaccine (#1) 2023 RSV Patients and Pa tients Aged 60 years or older (1 - 1-dose 75+ series) 11/14/2039 HIB Vaccines Aged Out No longer eligi ble based on patient's age to complete this topic HPV Vaccines Aged Out No longer eligi ble based on patient's age to complete this topic Hepatitis A Vaccines Aged Out No long er eligible based on patient's age to complete this topic IPV Vaccines Aged Out No longer eligi ble based on patient's age to complete this topic Meningococcal Vaccine Aged Out No tejas awais eligible based on patient's age to complete this topic Pneumococcal Vaccine: Pediat rics (0 to 5 Years) and At-Risk Patients (6 to 64 Years) Aged Out No longer eligible b ased on patient's age to complete this topic RSV under 20 months Aged Out No longe r eligible based on patient's age to complete this topic Rotavirus Vaccines Aged Out No longer eligible based on patient's age to complete this topic
--- OUTSIDE RECORDS SUMMARY | 2024-03-15 10:00 | XMS_ITS | Encounter Summary ---
Author Organization [facility] [facility] Address [address] [place] [address] [address] [place] [address] Care Team Providers Care Machine Biller Name Role Phone Unavailable Primary Care Provider Unavailabl e Encounter Details Date Type Department Care Team (Latest Contact Info) Description 02/25/2018 Abstract C CONVERSIONS Dental, Provider, DDS Social [...]
--- NOTE | 2024-03-15 11:25 | AM.OFFWIN_ITS ---
Intake Vital Signs 03/15/24 11:27 Height 5 ft 2 in Weight 120 lb BMI 21.9 BP 112/70 Blood Pressure Location Rt brachial Position Sitting Pulse 73 Pulse Source Pulse Oximeter Temp 98.2 F Temp Source Oral Pulse Oximetry (%) 96 Oxygen Delivery Method Room Air Intake Visit Reasons: EP Fever, chest congestion/flu symptoms Intake Note: Patient here for feverm chest congestion that started Thursday. Patient Tobacco Use Status: Never used Tobacco Allergies codeine [CODEINE] Allergy (Unknown, Verified 03/15/24 11:27) RASH dog dander [DOGS] Allergy (Unknown, Verified 03/15/24 11:27) DIFFICULTY BREATHING fluconazole [From DIFLUCAN] Allergy (Unknown, Verified 03/15/24 11:27) DIARRHEA levofloxacin [From LEVAQUIN] Allergy (Unknown, Verified 03/15/24 11:27) RASH milk [MILK] Allergy (Unknown, Verified 03/15/24 11:27) HIVES Penicillins [PENICILLINS] Allergy (Unknown, Verified 03/15/24 11:27) HIVES pollen extracts [POLLEN] Allergy (Unknown, Verified 03/15/24 11:27) DIFFICULTY BREATHING oxycodone [OXYCODONE] Adverse Reaction (Unknown, Verified 03/15/24 11:27) VOMITING Do you need a note to return to daycare/school/sports/work: No HPI HPI Comments History of Present Illness Details This is a 58-year-old female with a past medical history of depression presenting for evaluation of fever, chest congestion and headache that she has had since Thursday. Patient states that her has had similar symptoms. Patient has taken Excedrin only without relief of her discomfort. Patient denies having any otalgia, pharyngitis, chest pain or overt shortness for breath. Patient's fevers have been as high as 102.9?. PFSH Medical History Depression Anxiety Chronic fatigue Mitral valve prolapse Migraine Osteoarthritis of cervical spine Surgical History No pertinent past surgical history Family History Father CVD (cardiovascular disease) Mother No problems noted. Other Mental health problem Social History Housing: Condominium Alcohol intake: never Patient Tobacco Use Status: Never used Tobacco e-Cigarette/Vaping Use: Never Used Second Hand Smoke Exposure: No service: No Current occupational status: disabled Cognitive needs: No Hearing needs: No Vision needs: No Review of Systems Const All systems reviewed & are unremarkable except as noted in HPI and below Denies chills, Reports fatigue, Reports fever(s), Reports headache(s) and Reports malaise Eyes Reports no additional complaints ENT Reports no additional complaints, Denies otalgia, Reports headache(s), Denies o dynophagia and Denies sore throat Card Reports no additional complaints, Denies chest pain, Denies dyspnea and Denies dyspnea on exertion Resp Reports cough, Denies dyspnea, Denies dyspnea on exertion and Denies wheezing GI Reports no additional complaints and Denies odynophagia Reports no additional complaints Musc Reports no additional complaints Skin/Breast Reports system reviewed and no additional complaints, except as documented Neuro Reports no additional complaints and Reports headache(s) Psych Reports no additional complaints Endo Reports no additional complaints and Reports fatigue Henry/Lymph Reports no additional complaints Aller/Immun Reports no additional complaints and Denies wheezing Physical Exam Vital Signs: Last Vital Signs Temp 98.2 F 03/15/24 11:27 Pulse 73 03/15/24 11:27 BP 112/70 03/15/24 11:27 Pulse Ox 96 03/15/24 11:27 Oxygen Delivery Method Room Air 03/15/24 11:27 BMI result Body Mass Index 21.9 Const General: cooperative, comfortable, no acute distress, well developed, alert and awake; No diaphoretic, ill appearing or lethargic Nutritional Appearance: average body habitus Orientation/consciousness: patient oriented x3 and No lethargic Limitations: no limitations HEENT Head: Yes normal to inspection and Yes normocephalic Ears: hearing grossly normal bilaterally, external ears normal, TM's normal bilaterally and EAC's normal General nose exam: Normal external nose present Face and sinus: Yes normal facial exam and Yes sinuses nontender Mouth: Normal oral and palatal mucosa present and moist mucous membranes Throat: Yes posterior oropharynx normal (There is no edema, erythema or exudates of the posterior oropharynx.) and Yes postnasal drainage Eyes Visual Neri: normal visual neri by confrontation Periorbital: periorbital findings normal Eyelids: Yes eyelids normal Pupils: Equal, round and reactive pupils present EOM: EOMs intact bilaterally Direct Ophthalmoscopy: normal light reflex and no photophobia Neck Lymphatic: no lymphadenopathy noted Resp Effort & Inspection: normal respiratory effort, no audible wheezes, no cough, no respiratory distress and not tachypneic Auscultation: clear to auscultation bilaterally Cardio Rate: regular rate Rhythm: regular rhythm Skin General skin exam: no rashes or lesions noted Neuro General: patient oriented x3 Cranial nerves: Yes Equal, round and reactive pupils present Psych Appearance: grossly normal Mental Status: mental status grossly normal Insight: Good insight present (Psych) Judgement: Good judgement present (Psych) Assessment & Plan Assessment & Plan (1) Acute upper respiratory infection: Comment: SARS panel is obtained and results are pending. Code(s): J06.9 - Acute upper respiratory infection, unspecified Plan: Tea with honey, increase clear fluids daily, Mucinex OTC, Tylenol or ibuprofen as needed for discomfort. Orders: Orders SARS-CoV2/FLU/RSV Today J06.9 - Acute upper respiratory infection, unspecified Coding Level of Care Code Est Pt Level 3 (17202) Diagnoses Acute upper respiratory infection J06.9 Time Spent (min) 20
[2024-03-15 11:27] VITALS: BP 112/70; PULSE 73; TEMP 36.8; O2SAT 96; BMI 21.9
== END 2024-03-15 12:20 | disposition home or self-care (01) ==
PROVIDERS: PCP Internal Medicine; Visit Provider Physician Assistant
DX: J06.9 Acute upper respiratory infection, unspecified (principal)

== ENCOUNTER 2024-07-07 09:04 | Outpatient (AMB) | payer MEDICARE, SELFPAY ==
--- NOTE | 2024-07-07 09:06 | A.OFFVIS_ITS ---
Vital Signs 07/07/24 09:08 Height 5 ft 2 in Weight 121 lb BMI 22.1 BP 98/76 Intake Visit Reasons: New patient Annual Intake Note: no concerns Motor Checker Required: No Information Interpreted: non-clinical & clinical Managed Care Manager: Managed Care Manager Present Accompanied by: Self / Same As Patient Allergies codeine [CODEINE] Allergy (Unknown, Verified 07/07/24 09:09) RASH dog dander [DOGS] Allergy (Unknown, Verified 07/07/24 09:09) DIFFICULTY BREATHING fluconazole [From DIFLUCAN] Allergy (Unknown, Verified 07/07/24 09:09) DIARRHEA levofloxacin [From LEVAQUIN] Allergy (Unknown, Verified 07/07/24 09:09) RASH milk [MILK] Allergy (Unknown, Verified 07/07/24 09:09) HIVES Penicillins [PENICILLINS] Allergy (Unknown, Verified 07/07/24 09:09) HIVES pollen extracts [POLLEN] Allergy (Unknown, Verified 07/07/24 09:09) DIFFICULTY BREATHING oxycodone [OXYCODONE] Adverse Reaction (Unknown, Verified 07/07/24 09:09) VOMITING Post menopausal: Yes HPI Comments Details: She is a postmenopausal woman presenting for her new patient annual manufacturing engineer assembly examination. She is doing well with manufacturing engineer assembly concerns. She reports seeing Dr. Jarquin until he retired, was supposed to have a procedure, due to his senior living never had a follow up. She is unsure what he found on her physical exam that needed to be taken care of. No records available today. Currently sexually active w/. Denies any vaginal dryness or irritation. STI testing offered; she declined. Attempting to eat a healthy diet, and not very active with exercise. Last pap smear; normal history, approx. 3 yrs. ag per pt. Last mammogram; 2024, history of stable breast mass per report. ColoGard is UTD per pt. Denies any family history of breast, ovarian or colon cancer. [facility] Medical History (Updated 07/07/24 @ 09:51 by Angi So CNM) Cervical polyp Depression Anxiety Chronic fatigue Mitral valve prolapse Migraine Osteoarthritis of cervical spine Surgical History Hx of tubal ligation Family History Father CVD (cardiovascular disease) Mother HTN (hypertension) Brother HTN (hypertension) Other Mental health problem Social History Household Members: Spouse Housing: Condominium Alcohol intake: never Patient Tobacco Use Status: Never used Tobacco e-Cigarette/Vaping Use: Never Used Second Hand Smoke Exposure: No service: No Current occupational status: retired and disabled Sexual orientation: Straight/Heterosexual Gender identity: Female Cognitive needs: No Hearing needs: No Vision needs: No Female Reproductive History Menstrual Menopause type: natural Total pregnancies: 2 Full term: 2 Number of Living Children: 2 Date of last pap smear: 02/05/20 Date of Mammogram: 04/15/24 Review of Systems Const All systems reviewed & are unremarkable except as noted in HPI and below Reports as per HPI Eyes Reports no additional complaints ENT Reports no additional complaints Card Reports no additional complaints Resp Reports no additional complaints GI Reports as per HPI and Reports no additional complaints Reports as per HPI Musc Reports no additional complaints Skin/Breast Reports as per HPI Neuro Reports no additional complaints Psych Reports no additional complaints Endo Reports no additional complaints Henry/Lymph Reports no additional complaints Aller/Immun Reports no additional complaints Physical Exam Vital Signs: Last Vital Signs BP 98/76 07/07/24 09:08 BMI result Body Mass Index 22.1 Const General: cooperative, healthy appearing, no acute distress, well developed and alert Orientation/consciousness: patient oriented x3 HEENT Head: Yes normal to inspection Eyes General: appearance normal, both eyes and all related structures Neck Neck: Yes normal visual inspection Thyroid: Thyroid normal Chest Chest palpation & inspection: normal inspection of the chest and other (no puckering, dimpling, peau de orange, retraction, discharge, masses) Breast/axilla inspection: normal inspection of the breasts Breast/axilla palpation: normal palpation of the breasts Resp Effort & Inspection: normal respiratory effort GI Inspection: Yes normal to inspection Palpation (GI): Soft to palpation Rectal Exam - Female: deferred General: Yes bladder normal to palpation External Female Exam: normal external appearance and normal appearance of the urethra Speculum Exam - Vagina: normal appearance of the vagina, normal palpation and normal vaginal discharge Speculum Exam - Cervix: normal appearance of the cervix, normal palpation and Cervical mass present (Large polypoid type tissue with a large base) pedunculated and other (Bled slightly with Pap) Bimanual exam- vagina & uterus: normal bimanual exam, normal palpation, uterine size normal, bladder normal to palpation, normal palpation and non-tender Bimanual Exam- Adnexa, other: no masses Skin General skin exam: no rashes or lesions noted Rashes: no rashes Neuro General: patient oriented x3 Cognition (Neuro): normal cognition Extrem General: Yes normal to inspection Psych Attitude: cooperative Thought process: Normal thought process present Assessment & Plan Assessment & Plan (1) Cervical polyp: Code(s): N84.1 - Polyp of cervix uteri Category: Medical Plan: Counseled regarding polyp findings, advised removal, appointment to be made with Dr. De Anda for consult and removal. The patient expressed understanding and agreement with the plan of care. All of her questions and concerns were addressed to the best of my ability. Total time I personally spent on visit and management today: ?10 minutes. Time spent included review of pertinent office notes in the electronic health record; review of laboratory and imaging results; review of personal family medical history; performing physical exam; discussing diagnosis and plan of care with the patient; documenting the encounter in the EMR. (2) Encounter for well woman exam with routine gynecological exam: Code(s): Z01.419 - Encounter for gynecological examination (general) (routine) without abnormal findings Category: Medical Plan Discussed: Current recommendations for pap smears per ASCCP guidelines. Pap smear obtained. Breast awareness, periodic self breast exams and yearly mammogram. Maintain a healthy lifestyle, well balanced diet including Calcium 1,200 mg and Vitamin D 600 IU daily, and routine exercise. Sign a release of records Dr. Jarquin/[facility]. Contact the office with any postmenopausal bleeding. Patient verbalizes understanding and agrees to the plan of care. She was given opportunity to ask questions and all questions were answered to the best of my ability. RTO in 1 year for annual manufacturing engineer assembly exam. This note is constructed using voice recognition software. While every effort has been made to ensure accuracy, baller tender errors may have been included. Coding Level of Care Code New Pt Level 2 (33482) New Pt Prev Care 40-64y(49469) Diagnoses Cervical polyp N84.1 Encounter for well woman exam with routine gynecological exam Z01.419
[2024-07-07 09:08] VITALS: BP 98/76; BMI 22.1
--- OUTSIDE RECORDS SUMMARY | 2024-07-07 09:18 | XMS_ITS | Encounter Summary ---
Author Organization [employer] [facility] Address [address] [place] [address] Care Team Providers Care Corporate Law Specialist Name Role Phone Unavailable Primary Care Provider [...]
--- OUTSIDE RECORDS SUMMARY | 2024-07-07 09:18 | XMS_ITS | Clinical Summary ---
Author Organization [employer] Address [address] [place] [address] Care Team Providers Care Thoroughbred Horse Farm Manager Name Role Phone Unavailable Primary Care Provider [...] 1964 FIT 1964 FOBT 1964 Sigmoidoscopy 1964 Disability Screening 1964 Alcohol/Substance Use Screening 1976 Tobacco Screening 1976 DTaP/Tdap/Td Vaccines (1 - Tdap) 11/14/1983 Hepatitis B Vaccines (1 of 3 - 19+ 3-dose series) 11/14/1983 Pap Smear 1985 Cervical Cancer Screening 1994 HPV/Cotest 1994 Mammogram 2004 Pneumococcal Vaccine: 50+ Ye ars (1 of 1 - PCV) 2014 Zoster Vaccines (1 of 2) 2014 COVID-19 [...] patient's age to complete this topic Meningococcal B Vaccine Aged Out No l onger eligible based on patient's age to complete [...]
--- OUTSIDE RECORDS SUMMARY | 2024-07-07 09:19 | XMS_ITS | Encounter Summary ---
Author Organization [employer] [facility] Address [address] [place] [address] Care Team Providers Care Quality Assurance Technician Name Role Phone Unavailable Primary Care Provider [...]
== END 2024-07-07 09:54 | disposition home or self-care (01) ==
LOC: HO.HWS 09:05
PROVIDERS: PCP Internal Medicine; Visit Provider Advanced Practice Midwife
DX: Z01.419 Encounter for gynecological examination (general) (routine) without abnormal findings (principal); N84.1 Polyp of cervix uteri
CPT/HCPCS: 99202; G0101; Q0091

== ENCOUNTER 2024-07-07 09:04 | Outpatient (REF) | payer MEDICARE, SELFPAY ==
[2024-07-13 14:45] LABS: HPV Genotype 16 Negative (Negative); HPV Genotype 18 Negative (Negative); HPV High Risk Negative (Negative)
== END 2024-07-07 09:05 | disposition home or self-care (01) ==
LOC: HO.LNP 09:04
PROVIDERS: PCP Internal Medicine; Visit Provider Advanced Practice Midwife
DX: Z01.419 Encounter for gynecological examination (general) (routine) without abnormal findings (principal); N84.1 Polyp of cervix uteri
CPT/HCPCS: 87626; 88175; 99202; G0101; Q0091

== ENCOUNTER 2024-09-22 08:18 | Outpatient (AMB) | payer MEDICARE, SELFPAY ==
[2024-09-22 08:20] VITALS: BMI 22.1
--- NOTE | 2024-09-22 08:20 | A.OFFVIS_ITS ---
Vital Signs 09/22/24 08:20 Height 5 ft 2 in Weight 121 lb BMI 22.1 Intake Visit Reasons: polyp removal/Angi's pt Hob Mill Operator Required: No Information Interpreted: non-clinical & clinical Ground Services Instructor: Ground Services Instructor Present (Lana Nehemiah SALCIDO/ [place]) Accompanied by: Spouse Allergies codeine (CODEINE) Allergy (Unknown, Verified 09/22/24 08:21) RASH dog dander (DOGS) Allergy (Unknown, Verified 09/22/24 08:21) DIFFICULTY BREATHING fluconazole (From DIFLUCAN) Allergy (Unknown, Verified 09/22/24 08:21) DIARRHEA levofloxacin (From LEVAQUIN) Allergy (Unknown, Verified 09/22/24 08:21) RASH milk (MILK) Allergy (Unknown, Verified 09/22/24 08:21) HIVES Penicillins (PENICILLINS) Allergy (Unknown, Verified 09/22/24 08:21) HIVES pollen extracts (POLLEN) Allergy (Unknown, Verified 09/22/24 08:21) DIFFICULTY BREATHING oxycodone (OXYCODONE) Adverse Reaction (Unknown, Verified 09/22/24 08:21) VOMITING Post menopausal: Yes HPI Comments Details: Presenting referred from Angi So CNM regarding cervical polyp Last co testing 07/10 showed ASCUS HPV negative 02/04 co testing at [facility] was negative, the patient gives history of abnormal squamous cells rule out high-grade followed by biopsy was negative in since then normal Pap smear [facility] Medical History Cervical polyp Depression Anxiety Chronic fatigue Mitral valve prolapse Migraine Osteoarthritis of cervical spine Surgical History Hx of tubal ligation Family History Father CVD (cardiovascular disease) Mother HTN (hypertension) Brother HTN (hypertension) Other Mental health problem Social History Household Members: Spouse Housing: Condominium Alcohol intake: never Patient Tobacco Use Status: Never used Tobacco e-Cigarette/Vaping Use: Never Used Second Hand Smoke Exposure: No service: No Current occupational status: retired and disabled Sexual orientation: Straight/Heterosexual Gender identity: Female Cognitive needs: No Hearing needs: No Vision needs: No Review of Systems Const All systems reviewed & are unremarkable except as noted in HPI and below Physical Exam Vital Signs: BMI result Body Mass Index 22.1 General: Yes no CVA tenderness External Female Exam: normal external appearance and normal appearance of the urethra Speculum Exam - Vagina: normal appearance of the vagina, normal palpation, lesion (Right vaginal wall lesion excised) and no masses Speculum Exam - Cervix: normal appearance of the cervix, normal palpation, no lesions, no masses, nontender and Other cervical findings present (2 cm endocervical polyp was wide-based) Bimanual exam- vagina & uterus: normal bimanual exam, normal palpation, uterine size normal, normal palpation, uterine shape normal, No Cervical tenderness present and non-tender Bimanual Exam- Adnexa, other: normal adnexae Back/Spine/Pelvis Back: no CVA tenderness Office Procedures Colposcopy Colposcopy: Pre-Procedure Counseling: Before beginning the procedure, I conducted comprehensive counseling with the patient. We thoroughly discussed the procedure itself, including its details, alternatives, and all associated risks. This included but not limited to the following complications such as bleeding, infection, and injury to the vagina, bladder, and vessels, as well as the potential need for transfusion with all its associated risks. Subsequently, the patient sign the consent. Pap smear result: Ascus/HPV negative, history of abnormal squamous cells can not rule out high-grade remotely Procedure: During the procedure, the following steps were performed: A speculum was inserted, and acetic acid was applied. Colposcopy was conducted, allowing visualization of the transformation zone. Acetowhite lesions were identified at the 11+ 1 +3 o'clock position. Cervical biopsies were obtained from the 11+ 1 +3 o'clock position, followed by an endocervical curettage (ECC) and a biopsy from the endocervical lesion/polyp. Vaginoscopy of the upper vagina revealed right vaginal wall lesion with aceto- white lesions. Hemostasis was achieved using Monsel solution, and the patient tolerated the procedure well. Post-Procedure Instructions: The patient was advised to promptly contact the office or the after hours answering service or go to the emergency room if experiencing a temperature exceeding 100.4?F, abdominal pain, nausea/vomiting, or bleeding. Additionally, the patient was instructed to abstain from vaginal intercourse and bathtub use. The patient confirmed understanding of these instructions. Discharge Instructions: The patient was instructed to schedule a follow-up appointment in 2 weeks for further evaluation and management. Please note that this note was generated using a voice recognition program, and errors may have occurred during mechanical insulator. Procedure code (CPT) selection complete Assessment & Plan Assessment & Plan (1) ASCUS of cervix with negative high risk HPV: Code(s): R87.610 - Atypical squamous cells of undetermined significance on cytologic smear of cervix (ASC-US) Category: Medical Plan: Discussed with the patient the ASCCP guidelines for ascus HPV negative to repeat co testing in 3 years but since the patient has history of abnormal Pap rule out high-grade LAVERN with no pathology results available although it is remote, since the patient is going to have polypectomy under anesthesia recommended colposcopy biopsy ECC prior in case the patient would need additional possible LEEP in case of abnormal cervical pathology. Colposcopy done, see procedure note (2) Cervical polyp: Code(s): N84.1 - Polyp of cervix uteri Category: Medical Plan: Discussed with the patient the finding on pelvic exam large cervical polyp with wide stalk, can not be removed in the office. Biopsy taken. Instructions given the patient to schedule an follow-up appointment within 1 week. All questions answered, the patient verbalized understanding (3) Vaginal lesion: Code(s): N89.8 - Other specified noninflammatory disorders of vagina Category: Medical Plan: Discussed with the patient the finding on pelvic exam right vaginal lesion, biopsied, see procedure note Orders: Orders AMB Colposcopy Today R87.610 - Atypical squamous cells of undetermined significance on cytologic smear of cervix (ASC-US) Coding Level of Care Code Procedure Only Diagnoses ASCUS of cervix with negative high risk HPV R87.610 Cervical polyp N84.1 Vaginal lesion N89.8
--- OUTSIDE RECORDS SUMMARY | 2024-09-22 08:22 | XMS_ITS | Encounter Summary ---
Author Organization [employer] [facility] Address [address] 7 [place] [address] Care Team Providers Care Medical Laboratory Technician Name Role Phone Unavailable Primary Care [...]
--- OUTSIDE RECORDS SUMMARY | 2024-09-22 08:22 | XMS_ITS | Clinical Summary ---
Author Organization [facility] Address [address] [place] [id number] Care Team Providers Care Telescope Repairer Name Role Phone Unavailable Primary Care Provider Unavailabl e Encounters Date Type Department Care Team Description 07/08/2024 - 07/08/2024 9:08 AM EDT [place] [address] Discharge Disposition: Home or Self Care from Last 3 Months Social History Tobacco Use Types Packs/Day Years Used Date Smoking Tobacco: Never Assessed Comments Unknown Sex and Gender Information Value Date Recorded Sex Assigned at Not on file Legal Sex Female 6:14 PM EST Gender Identity Not on file Sexual Orientation Not on file Plan of Treatment Health Maintenance Due Date Last Done Comments Hepatitis C Virus Screening 1964 HIV Screening 1977 DTaP/Tdap/Td Vaccines (1 - Tdap) 11/14/1983 Hepatitis B Vaccines (1 of 3 - 19+ 3-dose series) 10/18 Pneumococcal Vaccines 50+ (1 of 1 - PCV) 2014 Zoster (Shingles) Vaccine (1 of 2) 2014 COVID-19 Vaccine (1 - season) 2023
--- OUTSIDE RECORDS SUMMARY | 2024-09-22 08:22 | XMS_ITS | Patient Health Record ---
Author Organization [facility] Address [address] [place] [address] Care Team Providers Care Concierge Name Role Phone Mane Feliciano Jr [phone] Reason For Referral No Information Plan Of Treatment No Information
--- OUTSIDE RECORDS SUMMARY | 2024-09-22 08:23 | XMS_ITS ---
Author Name [facility] Organization Unknown Encounters Encounter Type Encounter Reason Primary Diagnosis Location Date Ambulatory [facility] 07/08/2024 Care Team Organization Name Specialty Phone Email Start Date End [facility] 07/08/2024
== END 2024-09-22 09:15 | disposition home or self-care (01) ==
LOC: HO.HWS 08:18
PROVIDERS: PCP Internal Medicine; Visit Provider Obstetrics & Gynecology
DX: R87.610 Atypical squamous cells of undetermined significance on cytologic smear of cervix (ASC-US) (principal); N84.1 Polyp of cervix uteri; N89.8 Other specified noninflammatory disorders of vagina
CPT/HCPCS: 57454

== ENCOUNTER 2024-09-22 08:18 | Outpatient (REF) | payer MEDICARE, SELFPAY | END 2024-09-22 08:19 | disposition home or self-care (01) | LOC: HO.LNP 08:18 | PROVIDERS: PCP Internal Medicine; Visit Provider Obstetrics & Gynecology | DX: N84.1 Polyp of cervix uteri (principal); N89.8 Other specified noninflammatory disorders of vagina; R87.610 Atypical squamous cells of undetermined significance on cytologic smear of cervix (ASC-US); Z98.51 Tubal ligation status | CPT/HCPCS: 57454; 88305; 88341; 88342 ==

== ENCOUNTER 2024-09-23 08:07 | Outpatient (AMB) | payer MEDICARE, SELFPAY ==
--- NOTE | 2024-09-23 08:31 | A.OFFPC_ITS ---
Vital Signs 09/23/24 08:33 Height 5 ft 2 in Weight 122 lb 2 oz BMI 22.3 BP 110/60 Blood Pressure Location Lt brachial Position Sitting Pulse 67 Pulse Source Pulse Oximeter Temp 97.1 F Temp Source Temporal Artery Scan Pulse Oximetry (%) 98 Oxygen Delivery Method Room Air Intake Visit Reasons: 6 month f/u Intake Note: Patient is here to follow up on low back pain, OA, Migraine. Playground Worker Required: No Reconcilement Clerk: Not Required per policy Accompanied by: Self / Same As Patient Allergies codeine (CODEINE) Allergy (Unknown, Verified 09/23/24 08:50) RASH dog dander (DOGS) Allergy (Unknown, Verified 09/23/24 08:50) DIFFICULTY BREATHING fluconazole (From DIFLUCAN) Allergy (Unknown, Verified 09/23/24 08:50) DIARRHEA levofloxacin (From LEVAQUIN) Allergy (Unknown, Verified 09/23/24 08:50) RASH milk (MILK) Allergy (Unknown, Verified 09/23/24 08:50) HIVES Penicillins (PENICILLINS) Allergy (Unknown, Verified 09/23/24 08:50) HIVES pollen extracts (POLLEN) Allergy (Unknown, Verified 09/23/24 08:50) DIFFICULTY BREATHING oxycodone (OXYCODONE) Adverse Reaction (Unknown, Verified 09/23/24 08:50) VOMITING Medication List - Last Reconciled 09/23/24 by RAQUEL Reilly bupropion HCl SR 150 mg PO DAILY 90 days Tobacco use date assessed: 09/23/24 Dental Screening Dental Screen Date: 09/23/24 Did you have a dental visit in the last 12 months?: Yes Did you have a dental problem in the last 6 months where you did not have access to dental care?: No Was dental information given to patient?: Patient has dentist HPI 6 month f/u HPI Details The patient is a 58-year-old female presenting with headaches, cervical degenerative disc disease, anxiety, and fatigue. She reports headaches that can become severe if not treated promptly, lasting for several days if not managed in time. She attempts to manage these headaches with medication when symptoms arise. The patient has a history of cervical degenerative disc disease, resulting in constant neck pain. She describes the pain as persistent, and although she tries to manage it with posture adjustments and exercises, the discomfort remains. Anxiety is another concern for the patient, which she feels is currently more controlled than before. The patient also reports feeling tired and having difficulty sleeping, contributing to her fatigue. For preventative care, the patient is due for blood work, including a complete blood count and cholesterol panel, as it has been some time since her last t ests. COUNTS INCLUDE 234 BEDS AT THE [facility] Medical History (Updated 09/23/24 @ 12:29 by RAQUEL Reilly) Cervical polyp Depression Anxiety Chronic fatigue Mitral valve prolapse Migraine Osteoarthritis of cervical spine Surgical History History of biopsy Hx of tubal ligation Family History Father CVD (cardiovascular disease) Mother HTN (hypertension) Brother HTN (hypertension) Other Mental health problem Social History Household Members: Spouse Housing: Condominium Alcohol intake: never Patient Tobacco Use Status: Never used Tobacco e-Cigarette/Vaping Use: Never Used Second Hand Smoke Exposure: No service: No Current occupational status: retired and disabled Sexual orientation: Straight/Heterosexual Gender identity: Female Cognitive needs: No Hearing needs: No Vision needs: No Questionnaire PHQ-9 Over the last 2 weeks, how often have you been bothered by any of the following problems? 1. Little interest or pleasure in doing things: not at all 2. Feeling down, depressed, or hopeless: several days 3. Trouble falling or staying asleep, or sleeping too much: several days 4. Feeling tired or having little energy: several days 5. Poor appetite or overeating: not at all 6. Feeling bad about yourself - or that you are a failure or have let yourself or your family down: not at all 7. Trouble concentrating on things, such as reading the newspaper or watching television: not at all 8. Moving or speaking so slowly that other people could have noticed. Or the opposite - being so fidgety or restless that you have been moving around a lot more than usual: not at all 9. Thoughts that you would be better off or of hurting yourself in some way: not at all Total score: 3 Depression Screening Interpretation: Negative Depression Screening Done: Yes 20356 - PHQ-9 Billing: Yes Source: Developed by Drs. Ahmet Francis, Gabriel Austin and colleagues, with an educational benson from [employer]. Thrive Questionnaire Date Thrive assessed: 09/23/24 I am a: Patient What is your living situation today?: I have a steady place to live Within the past 12 months, did the food you bought not last and you didn't have the money to get more?: I choose not to answer this question Within the past 12 months, did you worry whether your food would run out before you got money to buy more?: I choose not to answer this question Do you have trouble paying for medicines?: No Do you have trouble getting transportation to medical appointments?: No Do you have trouble paying your heating and electricity bill?: No Do you have trouble taking care of your child, family member or friend?: No Do you have trouble with day-to-day activities such as bathing, preparing meals, shopping, managing finances, etc.?: No Are you currently unemployed and looking for a job?: No Are you interested in more education?: I choose not to answer this question Please select the resources that you would like help with: None Currently or been in a relationship where the following occur: No concerns reported THRIVE Score: 0 AUDIT C Alcohol Use Questionnaire (AUDIT-C) 1. How often do you have a drink containing alcohol?: Never Total Score: 0 FITO-7 AMB Questionnaire FITO-7 Date FITO - 7 assessed: 09/23/24 Feeling nervous, anxious, or on edge: 1 = Several days Not being able to stop or control worryin = Not at all Worrying too much about different things: 1 = Several days Trouble relaxin = Not at all Being so restless that it is hard to sit still: 0 = Not at all Becoming easily annoyed or irritable: 0 = Not at all Feeling afraid as if something awful might happen: 0 = Not at all Total FITO-7 score (0-4 normal; 5-9 mild; 10-14 moderate; 15-21 severe): 2 Source: Developed by Peyton Boston Kurt Kroenke and colleagues, with an educational benson from [employer]. FITO-7 Assessment Billing FITO-7 Assessment Tool: FITO-7 Assessment 96555 Review of Systems Const Reports headache(s) (On and off-better controlled) Eyes Denies loss of vision ENT Denies vertigo, Denies dizziness, Reports headache(s) (On and off-better controlled), Reports neck pain (Constant-tolerable) and Denies sore throat Card Denies chest pain, Denies leg edema and Denies lightheadedness Resp Denies cough, Denies hemoptysis and Denies wheezing GI Denies abdominal pain, Denies melena, Denies constipation, Denies diarrhea and Denies vomiting Denies urinary frequency, Denies dysuria and Denies urinary urgency Musc Reports back pain (On and off), Denies arthralgias, Denies joint swelling, Reports neck pain (Constant-tolerable), Denies numbness and Denies tingling Neuro Denies Abnormal speech present, Denies behavioral changes, Denies vertigo, Denies dizziness, Reports headache(s) (On and off-better controlled), Denies loss of vision, Denies memory loss, Denies numbness and Denies tingling Psych Reports anxiety (Ongoing-controlled), Denies behavioral changes, Denies depression, Denies memory loss and Denies panic attacks Henry/Lymph Denies easy bleeding and Denies easy bruising Aller/Immun Denies wheezing Physical exam (Primary Care) Vital Signs: Last Vital Signs Temp 97.1 F 09/23/24 08:33 Pulse 67 09/23/24 08:33 BP 110/60 09/23/24 08:33 Pulse Ox 98 09/23/24 08:33 Oxygen Delivery Method Room Air 09/23/24 08:33 BMI result Body Mass Index 22.3 Tobacco/Smoking Status: Tobacco use Status Tobacco use date assessed 09/23/24 09/23/24 08:35 Patient Tobacco Use Status Never used Tobacco 09/23/24 08:35 e-Cigarette/Vaping Use Never Used 09/23/24 08:35 PHQ-9: PHQ-9 Score PHQ-9: Total score 3 09/23/24 08:58 Depression Screening Interpretation: Negative Thrive Assessment: Date of Thrive Assessment Date Thrive assessed 09/23/24 09/23/24 08:35 Currently or been in a relationship where the following occur: No concerns reported Const General: healthy appearing, no acute distress, alert and awake Nutritional Appearance: well nourished Orientation/consciousness: oriented to person, oriented to place and oriented to time [facility] Ears: hearing grossly normal bilaterally General nose exam: Normal external nose present Eyes Conjunctivae: conjunctivae normal Sclerae: sclerae normal Pupils: Equal, round and reactive pupils present Neck Neck: Yes no lymphadenopathy and Yes no JVD Thyroid: Thyroid normal Carotids: no bruits Resp Effort & Inspection: normal respiratory effort and not tachypneic Auscultation: no crackles, no rales, no rhonchi and no wheezes Cardio Rate: regular rate Rhythm: regular rhythm Heart sounds: S1 normal heart sound present, S2 normal heart sound present, no murmurs and normal S1 and S2 GI Palpation (GI): Soft to palpation, nontender, no hepatomegaly and no splenomegaly Auscultation: normal bowel sounds Back/Spine/Pelvis Cervical Spine: Cervical spine tenderness Thoracic/Lumbar Spine: No lumbar spinal tenderness Skin General skin exam: no rashes or lesions noted and dry skin Neuro General: oriented to person, oriented to place and oriented to time Cranial nerves: Yes Equal, round and reactive pupils present Speech: No Abnormal speech present Gait exam (Neuro): Normal gait present Motor exam (neuro): no tremor noted Extrem Right upper extremity: full ROM Left upper extremity: full ROM Right lower extremity: full ROM; no edema Left lower extremity: full ROM; no edema Psych Mental Status: mental status grossly normal Speech and movement: Normal speech and movement present Affect: normal affect Attitude: cooperative Thought process: Normal thought process present Results Reviewed Results Reviewed: Laboratory Tests 09/23/24 09/23/24 09:12 09:16 WBC 5.0 RBC 4.46 Hgb 12.9 Hct 39.5 MCV 88.6 MCH 28.9 MCHC 32.7 RDW 13.9 Plt Count 213 Sodium 140 Potassium 4.0 Chloride 106 Carbon Dioxide 30 H Anion Gap 8 L BUN 18 H Creatinine 0.63 Estimated GFR > 60 Fasting Glucose 89 Estimat Average Glucose 94 Hemoglobin A1c % 4.9 Calcium 8.9 D Total Bilirubin 0.5 AST 37 H ALT 46 H Alkaline Phosphatase 102 Total Protein 7.1 Albumin 4.2 Triglycerides 60 Cholesterol 185 LDL Cholesterol, Calc 112 H HDL Cholesterol 61 25-OH Vitamin D Total 98.3 TSH 0.83 Urine Color Yellow Urine Appearance Clear Urine pH 6.5 Ur Specific [place] 1.010 Urine Protein Negative Urine Glucose (UA) Negative Urine Ketones Negative Urine Blood Negative Urine Nitrite Negative Ur Leukocyte Esterase Moderate (2+) H Urine RBC 0-2 Urine WBC 0-5 Ur Squamous Epith Cells 0-2 Urine Bacteria None Seen Hyaline Casts 0-2 Coding Level of Care Code Est Pt Level 4 (51897) Diagnoses Anxiety F41.9 Dysthymia F34.1 Depression Type: dysthymia Vitamin A deficiency E50.9 Acute midline low back pain without sciatica M54.50 Back pain laterality: midline Chronicity: acute Sciatica presence: without sciatica Migraine without status migrainosus, not intractable, unspecified migraine type G43.909 Intractability: not intractable Migraine type: unspecified Status migrainosus presence: without status migrainosus Osteoarthritis of cervical spine, unspecified spinal osteoarthritis complication status M47.812 Spinal osteoarthritis complication: unspecified spinal osteoarthritis Chronic fatigue R53.82 Mitral valve prolapse I34.1 Elevated liver enzymes R74.8 Hyperlipidemia, unspecified hyperlipidemia type E78.5 Hyperlipidemia type: unspecified Additional Codes PHQ-9 - 77551 - PHQ-9 Billing: Yes ([id number]) FITO-7 Assessment Billing - FITO-7 Assessment Tool: FITO-7 Assessment 73525 ([id number]) Time Spent (min) 39 Assessment & Plan Assessment & Plan (1) Anxiety: Code(s): F41.9 - Anxiety disorder, unspecified Category: Medical (2) Depression: Code(s): F32.9 - Major depressive disorder, single episode, unspecified Category: Medical Qualifiers: Depression Type: dysthymia Qualified Code(s): F34.1 - Dysthymic disorder (3) Vitamin A deficiency: Code(s): E50.9 - Vitamin A deficiency, unspecified Category: Medical (4) Low back pain: Code(s): M54.50 - Low back pain, unspecified Category: Medical Qualifiers: Back pain laterality: midline Chronicity: acute Sciatica presence: without sciatica Qualified Code(s): M54.50 - Low back pain, unspecified (5) Migraine: Code(s): G43.909 - Migraine, unspecified, not intractable, without status migrainosus Category: Medical Qualifiers: Intractability: not intractable Migraine type: unspecified Status migrainosus presence: without status migrainosus Qualified Code(s): G43.909 - Migraine, unspecified, not intractable, without status migrainosus (6) Osteoarthritis of cervical spine: Comment: [place] [facility] [place] showed (+) degenerative changes at C5 - C6 Code(s): M47.812 - Spondylosis without myelopathy or radiculopathy, cervical region Category: Medical Qualifiers: Spinal osteoarthritis complication: unspecified spinal osteoarthritis Qualified Code(s): M47.812 - Spondylosis without myelopathy or radiculopathy, cervical region (7) Chronic fatigue: Code(s): R53.82 - Chronic fatigue, unspecified Category: Medical (8) Mitral valve prolapse: Comment: Echocardiogram done in June 2015 came out normal Code(s): I34.1 - Nonrheumatic mitral (valve) prolapse Category: Medical (9) Elevated liver enzymes: Code(s): R74.8 - Abnormal levels of other serum enzymes Category: Medical (10) HLD (hyperlipidemia): Code(s): E78.5 - Hyperlipidemia, unspecified Category: Medical Qualifiers: Hyperlipidemia type: unspecified Qualified Code(s): E78.5 - Hyperlipidemia, unspecified Plan The patient will undergo blood work, including a complete blood count and cholesterol panel, as part of her preventative care regimen. Management of headaches will continue with the use of medication as needed, with an emphasis on early intervention to prevent prolonged episodes. For cervical degenerative disc disease, the patient is advised to continue posture adjustments and exercises to manage neck pain. Anxiety management will continue with current strategies, as the patient reports it is more controlled. The patient is encouraged to address her fatigue by improving sleep hygiene and monitoring her sleep patterns. Normal LV systolic and diastolic function, normal cardiac valvular Doppler with mild prolapse of the posterior leaflet, normal RV systolic pressure and no gross pericardial effusion Follow up with cardiology as needed AST 37, ALT 46 refrain from alcohol and Tylenol containing medications. Decrease foods high in fat LDL slightly elevated at 112. Encouraged lifestyle modification and activity as tolerated Patient was informed and verbally consented to the use of an ambient scribe for clinic note documentation during this visit. Orders: Orders Complete Blood Count Auto Diff Today F34.1 - Dysthymic disorder, F41.9 - Anxiety disorder, unspecified, G43.909 - Migraine, unspecified, not intractable, without status migrainosus, I34.1 - Nonrheumatic mitral (valve) prolapse, M47.812 - Spondylosis without myelopathy or radiculopathy, cervical region, R00.2 - Palpitations, R07.9 - Chest pain, unspecified Lipid Panel Today F34.1 - Dysthymic disorder, F41.9 - Anxiety disorder, unspecified, G43.909 - Migraine, unspecified, not intractable, without status migrainosus, I34.1 - Nonrheumatic mitral (valve) prolapse, M47.812 - Spondylosis without myelopathy or radiculopathy, cervical region, R00.2 - Palpitations, R07.9 - Chest pain, unspecified UA CC w/rflx Micro + Cult Today F34.1 - Dysthymic disorder, F41.9 - Anxiety disorder, unspecified, G43.909 - Migraine, unspecified, not intractable, without status migrainosus, I34.1 - Nonrheumatic mitral (valve) prolapse, M47.812 - Spondylosis without myelopathy or radiculopathy, cervical region, R00.2 - Palpitations, R07.9 - Chest pain, unspecified TSH reflex Free T4 Today F34.1 - Dysthymic disorder, F41.9 - Anxiety disorder, unspecified, G43.909 - Migraine, unspecified, not intractable, without status migrainosus, I34.1 - Nonrheumatic mitral (valve) prolapse, M47.812 - Spondylosis without myelopathy or radiculopathy, cervical region, R00.2 - Palpitations, R07.9 - Chest pain, unspecified Vitamin D 25-OH Total Today F34.1 - Dysthymic disorder, F41.9 - Anxiety disorder, unspecified, G43.909 - Migraine, unspecified, not intractable, without status migrainosus, I34.1 - Nonrheumatic mitral (valve) prolapse, M47.812 - Spondylosis without myelopathy or radiculopathy, cervical region, R00.2 - Palpitations, R07.9 - Chest pain, unspecified Hemoglobin A1c Today F34.1 - Dysthymic disorder, F41.9 - Anxiety disorder, unspecified, G43.909 - Migraine, unspecified, not intractable, without status migrainosus, I34.1 - Nonrheumatic mitral (valve) prolapse, M47.812 - Spondylosis without myelopathy or radiculopathy, cervical region, R00.2 - Palpitations, R07.9 - Chest pain, unspecified Vitamin A Today E50.9 - Vitamin A deficiency, unspecified Comprehensive [place]. Panel Fast Today F34.1 - Dysthymic disorder, F41.9 - Anxiety disorder, unspecified, G43.909 - Migraine, unspecified, not intractable, without status migrainosus, I34.1 - Nonrheumatic mitral (valve) prolapse, M47.812 - Spondylosis without myelopathy or radiculopathy, cervical region, R00.2 - Palpitations, R07.9 - Chest pain, unspecified
[2024-09-23 08:33] VITALS: BP 110/60; PULSE 67; TEMP 36.2; O2SAT 98; BMI 22.3
== END 2024-09-23 09:02 | disposition home or self-care (01) ==
LOC: HO.HMCH 08:07
PROVIDERS: PCP Internal Medicine
DX: F41.9 Anxiety disorder, unspecified (principal); F34.1 Dysthymic disorder; E50.9 Vitamin A deficiency, unspecified; M54.50 Low back pain, unspecified; G43.909 Migraine, unspecified, not intractable, without status migrainosus; M47.812 Spondylosis without myelopathy or radiculopathy, cervical region; R53.82 Chronic fatigue, unspecified; I34.1 Nonrheumatic mitral (valve) prolapse; R74.8 Abnormal levels of other serum enzymes; E78.5 Hyperlipidemia, unspecified

== ENCOUNTER 2024-09-23 08:07 | Outpatient (REF) | payer MEDICARE, SELFPAY ==
--- OUTSIDE RECORDS SUMMARY | 2024-09-23 09:16 | XMS_ITS | Patient Health Record ---
Author Organization [facility] Address [address] [place] [address] Care Team Providers Care Public Service Representative Name Role Phone Mane Feliciano Jr [phone] Reason For Referral No Information Plan Of Treatment No Information
--- OUTSIDE RECORDS SUMMARY | 2024-09-23 09:16 | XMS_ITS | Clinical Summary ---
Author Organization [facility] Address [address] [place] [id number] Care Team Providers Care Billet Assembler Name Role Phone Unavailable Primary Care Provider Unavailabl e Encounters Date Type Department Care Team Description 07/08/2024 - 07/08/2024 9:08 AM EDT Hospital Encounter Griselda [place] [address] Discharge Disposition: Home or Self [...]
--- OUTSIDE RECORDS SUMMARY | 2024-09-23 09:16 | XMS_ITS | Encounter Summary ---
Author Organization [facility] Address [address] [place] [address] Care Team Providers Care Music Specialist Name Role Phone Unavailable Primary Care [...]
[2024-09-23 09:19] LABS: MANUAL DIFF FLAG NO
[2024-09-23 09:43] LABS: Hematocrit 39.5 % (37.0-47.0); Hemoglobin 12.9 g/dl (12.0-16.0); Imm Gran Abs Auto 0.01 X10*3/uL (0.00-0.03); Imm Gran Pct Auto 0.2 % (0.0-0.4); Lymphocytes Absolute Auto 1.8 X10*3/uL (1.2-4.9); Mean Corpuscular HGB Conc 32.7 g/dl (31.0-35.0); Mean Corpuscular Hemoglobin 28.9 pg (27.0-33.0); Mean Corpuscular Volume 88.6 fL (80.0-98.0); NRBC Abs Auto 0.000 X10*3/uL (0.0-0.012); NRBC Pct Auto 0.0 /100WBC (0.0-0.2); Platelet Count 213 X10*3/uL (160-400); Red Blood Count 4.46 X10*6/uL (4.20-5.50); White Blood Count 5.0 X10*3/uL (4.8-10.8)
[2024-09-23 09:49] LABS: Hemoglobin A1C 105.4320 umol/L; Total Hemoglobin (HGBA1C) 3518.6636 umol/L
[2024-09-23 09:53] LABS: Appearance Urine Clear; Glucose Urine UA Negative (Negative); PH 6.5 (5.0-9.0); Specific Gravity - Urine 1.010 (1.005-1.025); UMIC TRIGGER UACC YES
[2024-09-23 10:04] LABS: UACC Culture Trigger YES
[2024-09-23 10:36] LABS: Alanine Aminotransferase 46 U/L (0-31); Albumin Level 4.2 g/dL (3.5-5.0); Alkaline Phosphatase 102 U/L (39-117); Anion Gap 8 (12-20); Aspartate Amino Transferase 37 U/L (5-31); Blood Urea Nitrogen 18 mg/dL (9-16); Calcium 8.9 mg/dL (8.4-10.2); Carbon Dioxide 30 mmol/L (22-29); Chloride 106 mmol/L (96-108); Cholesterol 185 mg/dL (<200); Estimated Glomerular Filt Rate > 60; HDL Cholesterol 61 mg/dL (>40); Potassium 4.0 mmol/L (3.3-5.1); Sodium 140 mmol/L (135-145); Total Protein 7.1 g/dL (6.5-8.0); Triglycerides 60 mg/dL (<150)
== END 2024-09-23 08:08 | disposition home or self-care (01) ==
LOC: HO.LAB 08:07
PROVIDERS: PCP Internal Medicine
DX: Z13.1 Encounter for screening for diabetes mellitus (principal); R07.9 Chest pain, unspecified; R00.2 Palpitations; F41.9 Anxiety disorder, unspecified; F34.1 Dysthymic disorder; E50.9 Vitamin A deficiency, unspecified; M54.50 Low back pain, unspecified; G43.909 Migraine, unspecified, not intractable, without status migrainosus; M47.812 Spondylosis without myelopathy or radiculopathy, cervical region; R53.82 Chronic fatigue, unspecified; I34.1 Nonrheumatic mitral (valve) prolapse; R74.8 Abnormal levels of other serum enzymes; E78.5 Hyperlipidemia, unspecified; R82.90 Unspecified abnormal findings in urine
CPT/HCPCS: 36415; 80053; 80061; 81001; 82306; 83036; 84443; 84590; 85025; 87086; 96127; 99212

== ENCOUNTER 2024-09-29 12:45 | Outpatient (AMB) | payer MEDICARE, SELFPAY ==
--- NOTE | 2024-09-29 12:53 | MHC.OFFVIS ---
Intake Visit Reasons: colpo results Accompanied by: Self / Same As Patient Allergies codeine (CODEINE) Allergy (Unknown, Verified 09/23/24 08:50) RASH dog dander (DOGS) Allergy (Unknown, Verified 09/23/24 08:50) DIFFICULTY BREATHING fluconazole (From DIFLUCAN) Allergy (Unknown, Verified 09/23/24 08:50) DIARRHEA levofloxacin (From LEVAQUIN) Allergy (Unknown, Verified 09/23/24 08:50) RASH milk (MILK) Allergy (Unknown, Verified 09/23/24 08:50) HIVES Penicillins (PENICILLINS) Allergy (Unknown, Verified 09/23/24 08:50) HIVES pollen extracts (POLLEN) Allergy (Unknown, Verified 09/23/24 08:50) DIFFICULTY BREATHING oxycodone (OXYCODONE) Adverse Reaction (Unknown, Verified 09/23/24 08:50) VOMITING HPI Comments Details: Presenting post colpo and cervical polypectomy for follow-up. The patient is doing well with no complaints. The pathology showed the following: A. Endocervix, curettage: Scant benign squamous metaplastic cells and rare benign endocervical glandular cells; may not be visitor services representative with the endocervix. B. Cervix, 1:00, biopsy: Squamous mucosa with reactive and atrophic changes and focal atypia, and focal endocervical glandular mucosa (see comment). C. Cervix, 3:00, biopsy: Squamous and endocervical glandular mucosa with focal atypia (see comment). D. Cervix, 11:00, biopsy: Squamous and endocervical glandular mucosa with atrophic and reactive changes; negative for dysplasia. E. Cervical polyp, resection: Cervical/endocervical polyp with reactive changes and focal atypia (see comment). F. Vaginal lesion, right, biopsy: Fibroepithelial stromal polyp with reactive epithelial changes; negative for dysplasia. Comment: The atypia present in B, C and E is insufficient for an unequivocal diagnosis of dysplasia and follow-up is warranted. The atypical cells in the patient's previous Pap test ([id number]) are similar to the atypical cells in the current biopsy [facility] Medical History Cervical polyp Depression Anxiety Chronic fatigue Mitral valve prolapse Migraine Osteoarthritis of cervical spine Surgical History History of biopsy Hx of tubal ligation Family History Father CVD (cardiovascular disease) Mother HTN (hypertension) Brother HTN (hypertension) Other Mental health problem Social History Household Members: Spouse Housing: Condominium Alcohol intake: never Patient Tobacco Use Status: Never used Tobacco e-Cigarette/Vaping Use: Never Used Second Hand Smoke Exposure: No service: No Current occupational status: retired and disabled Sexual orientation: Straight/Heterosexual Gender identity: Female Cognitive needs: No Hearing needs: No Vision needs: No Review of Systems Const All systems reviewed & are unremarkable except as noted in HPI and below Reports as per HPI and Reports no additional complaints GI Reports no additional complaints Reports no additional complaints Assessment & Plan Assessment & Plan (1) ASCUS of cervix with negative high risk HPV: Comment: ECC insufficient Atypia insufficient for dysplasia diagnosis Code(s): R87.610 - Atypical squamous cells of undetermined significance on cytologic smear of cervix (ASC-US) Category: Medical Plan: Discussed with the patient the pathology results of the colposcopy biopsies & endocervical curettage, including the finding of focal atypia insufficient for dysplasia diagnosis in 2 cervical biopsy sites and ECC insufficient for diagnosis, recommended repeat ECC. Pre-Procedure Counseling: Before beginning the procedure, I conducted comprehensive counseling with the patient. We thoroughly discussed the procedure itself, including its details, alternatives, and all associated risks. This included but not limited to the following complications such as bleeding, infection, and injury to the vagina, bladder, and vessels, as well as the potential need for transfusion with all its associated risks. Subsequently, the patient sign the consent. Procedure: During the procedure, the following steps were performed: A speculum was inserted, and acetic acid was applied. Endocervical curettage (ECC). Hemostasis was achieved using Monsel solution, and the patient tolerated the procedure well. Post-Procedure Instructions: The patient was advised to promptly contact the office or the after hours answering service or go to the emergency room if experiencing a temperature exceeding 100.4?F, abdominal pain, nausea/vomiting, or bleeding. Additionally, the patient was instructed to abstain from vaginal intercourse and bathtub use. The patient confirmed understanding of these instructions. Discharge Instructions: Instructions given the patient to schedule follow-up appointment within a week for possible preop for LEEP and hysteroscopy D&C and cervix polypectomy (2) Vaginal lesion: Code(s): N89.8 - Other specified noninflammatory disorders of vagina Category: Medical Plan: Discussed with the patient the results of vaginal biopsy, the patient was reassured (3) Cervical polyp: Comment: Focal atypia insufficient for dysplasia diagnosis Code(s): N84.1 - Polyp of cervix uteri Category: Medical Plan: Discussed with the patient the pathology results showing focal atypia insufficient for the diagnosis of dysplasia, recommended hysteroscopy D&C and cervical polypectomy under anesthesia. Instructions given the patient to schedule preop visit within few days after ECC results are up Coding Level of Care Code Est Pt Level 3 (21470) Diagnoses ASCUS of cervix with negative high risk HPV R87.610 Vaginal lesion N89.8 Cervical polyp N84.1
--- OUTSIDE RECORDS SUMMARY | 2024-09-29 13:28 | XMS_ITS | Patient Health Record ---
Author Organization [facility] Address [address] [place] [address] Care Team Providers Care [employer] Wireman Name Role Phone Mane Feliciano Jr Reason For Referral No Information Plan Of Treatment No Information
--- OUTSIDE RECORDS SUMMARY | 2024-09-29 13:28 | XMS_ITS | Clinical Summary ---
Author Organization [facility] Address [address] [place] [id number] Care Team Providers Care Qc Lab Technician Name Role Phone Unavailable Primary Care Provider Unavailabl e Encounters Date Type Department Care Team Description 07/08/2024 - 07/08/2024 9:08 AM EDT Hospital Encounter Griselda [place] [address] Discharge Disposition: Home or Self [...]
--- OUTSIDE RECORDS SUMMARY | 2024-09-29 13:28 | XMS_ITS | Encounter Summary ---
Author Organization [facility] Address [address] [place] [address] Care Team Providers Care Head Start Coordinator Name Role Phone Unavailable Primary Care Provider [...]
== END 2024-09-29 13:43 | disposition home or self-care (01) ==
LOC: HO.HWS 12:45
PROVIDERS: PCP Internal Medicine; Visit Provider Obstetrics & Gynecology
DX: R87.610 Atypical squamous cells of undetermined significance on cytologic smear of cervix (ASC-US) (principal); N89.8 Other specified noninflammatory disorders of vagina; N84.1 Polyp of cervix uteri
CPT/HCPCS: 99213

== ENCOUNTER 2024-09-29 12:45 | Outpatient (REF) | payer MEDICARE, SELFPAY | END 2024-09-29 12:46 | disposition home or self-care (01) | LOC: HO.LNP 12:45 | PROVIDERS: PCP Internal Medicine; Visit Provider Obstetrics & Gynecology | DX: Z01.818 Encounter for other preprocedural examination (principal); R87.610 Atypical squamous cells of undetermined significance on cytologic smear of cervix (ASC-US); N89.8 Other specified noninflammatory disorders of vagina; N84.1 Polyp of cervix uteri | CPT/HCPCS: 88305; 99212 ==

== ENCOUNTER 2024-10-05 08:30 | Outpatient (AMB) | payer MEDICARE, SELFPAY ==
--- NOTE | 2024-10-05 08:42 | MHC.OFFVIS ---
Intake Visit Reasons: ECC results/ ? pre op leep Fuel Injection Servicer: Fuel Injection Servicer Present (Lily) Accompanied by: Spouse Allergies codeine (CODEINE) Allergy (Unknown, Verified 10/05/24 08:42) RASH dog dander (DOGS) Allergy (Unknown, Verified 10/05/24 08:42) DIFFICULTY BREATHING fluconazole (From DIFLUCAN) Allergy (Unknown, Verified 10/05/24 08:42) DIARRHEA levofloxacin (From LEVAQUIN) Allergy (Unknown, Verified 10/05/24 08:42) RASH milk (MILK) Allergy (Unknown, Verified 10/05/24 08:42) HIVES Penicillins (PENICILLINS) Allergy (Unknown, Verified 10/05/24 08:42) HIVES pollen extracts (POLLEN) Allergy (Unknown, Verified 10/05/24 08:42) DIFFICULTY BREATHING oxycodone (OXYCODONE) Adverse Reaction (Unknown, Verified 10/05/24 08:42) VOMITING Is last menstrual period known: Yes Last menstrual period: 12/15/19 Post menopausal: No Patient : No Do you need a note to return to daycare/school/sports/work: Yes (for surgery on thursday) HPI Comments Details: Presenting for follow-up. 09/22/2024 colpo biopsy and a polyp biopsy pathology: A. Endocervix, curettage: Scant benign squamous metaplastic cells and rare benign endocervical glandular cells; may not be field support representative with the endocervix. B. Cervix, 1:00, biopsy: Squamous mucosa with reactive and atrophic changes and focal atypia, and focal endocervical glandular mucosa (see comment). C. Cervix, 3:00, biopsy: Squamous and endocervical glandular mucosa with focal atypia (see comment). D. Cervix, 11:00, biopsy: Squamous and endocervical glandular mucosa with atrophic and reactive changes; negative for dysplasia. E. Cervical polyp, resection: Cervical/endocervical polyp with reactive changes and focal atypia (see comment). F. Vaginal lesion, right, biopsy: Fibroepithelial stromal polyp with reactive epithelial changes; negative for dysplasia. Comment: The atypia present in B, C and E is insufficient for an unequivocal diagnosis of dysplasia and follow-up is warranted. The atypical cells in the patient's previous Pap test ([id number]) are similar to the atypical cells in the current biopsy 09/30/2024 ECC pathology: Endocervix, curettage: Endocervical glandular and squamous epithelium with focal reactive and metaplastic changes; negative for dysplasia, and blood, inflammation and pigmented material consistent with silver nitrate [facility] Medical History Cervical polyp Depression Anxiety Chronic fatigue Mitral valve prolapse Migraine Osteoarthritis of cervical spine Surgical History History of biopsy Hx of tubal ligation Family History Father CVD (cardiovascular disease) Mother HTN (hypertension) Brother HTN (hypertension) Other Mental health problem Social History Household Members: Spouse Housing: Condominium Alcohol intake: never Patient Tobacco Use Status: Never used Tobacco e-Cigarette/Vaping Use: Never Used Second Hand Smoke Exposure: No service: No Current occupational status: retired and disabled Sexual orientation: Straight/Heterosexual Gender identity: Female Cognitive needs: No Hearing needs: No Vision needs: No Female Reproductive History Menstrual Date of last menstrual period: 12/15/19 Total pregnancies: 2 Full term: 2 Review of Systems Card Reports as per HPI and Reports no additional complaints Resp Reports as per HPI and Reports no additional complaints GI Reports as per HPI and Reports no additional complaints Reports as per HPI Physical Exam Const General: cooperative, healthy appearing and comfortable Resp Effort & Inspection: normal respiratory effort Auscultation: clear to auscultation bilaterally Percussion: percussion normal Cardio Palpation: normal PMI Rate: regular rate Rhythm: regular rhythm Heart sounds: no murmurs and no rubs Peripheral pulses: Peripheral pulses 2+ throughout GI Inspection: Yes normal to inspection Palpation (GI): Soft to palpation, nontender, no guarding, not rigid and No hepatosplenomegaly present Percussion: Yes normal to percussion Auscultation: normal bowel sounds Rectal Exam - Female: deferred Assessment & Plan Assessment & Plan (1) ASCUS of cervix with negative high risk HPV: Comment: Atypia insufficient for dysplasia diagnosis Code(s): R87.610 - Atypical squamous cells of undetermined significance on cytologic smear of cervix (ASC-US) Category: Medical Plan: Discussed with the patient the results of the pathology, given the focal atypia and the plan to proceed with polypectomy with a wide base stalk recommended excision LEEP which will be part of the polypectomy and will be used as a diagnostic for cervical atypia. Will proceed with LEEP possible LEEP cone was post cone ECC. Discussed with the patient the procedure, its benefits and risks including bleeding, infection, possible need for blood transfusion with all its risk ( HIV, syphilis, Hepatitis, anaphylaxis shock, others..), injury to bladder, rectum, possible re-excision for positive margins, potential need for hysterectomy, possible future negative impact on fertility including ( cervical stenosis, incompetence , increase risk for c section 2ndary to cervical scarring and failure of dilatation), possible positive margin necessitating re-excision. Also discussed the patient options of anesthesia either paracervical block versus IV sedation/MAC, prefers to proceed with IV sedation/MAC. All questions answered, the patient verbalized understanding and signed the consent. (2) Cervical polyp: Comment: Focal atypia insufficient for dysplasia diagnosis Code(s): N84.1 - Polyp of cervix uteri Category: Medical Plan: Discussed with the patient the results the pathology recommended hysteroscopy D&C with polypectomy/myomectomy under anesthesia given the size of the cervical polyp and for atypia Discussed with the patient the procedure , all benefits and risks including but not limited to inability to complete the procedure , insufficient endometrial tissue for a complete evaluation of the endometrial cavity , bleeding, infection, possible need for blood transfusion with all its risk ( HIV,syphilis, Hepatitis, anaphylaxis shock, others..), injury to bladder, rectum, possible need for laparoscopy/laparotomy or hysterectomy. The patient verbalized understanding and signed the consent. Instructions given the patient to stay NPO after midnight the day prior to the procedure and to take only the specific medication (s) discussed the morning of the surgical procedure and to schedule a 2 week postoperative appointment Coding Level of Care Code Est Pt Level 3 (95726) Diagnoses ASCUS of cervix with negative high risk HPV R87.610 Cervical polyp N84.1
--- OUTSIDE RECORDS SUMMARY | 2024-10-05 09:10 | XMS_ITS | Patient Health Record ---
Author Organization [facility] Address [address] [place] [address] Care Team Providers Care [employer] Worker Name Role Phone Mane Feliciano Jr [phone] Reason For Referral No Information Plan Of Treatment No Information
--- OUTSIDE RECORDS SUMMARY | 2024-10-05 09:10 | XMS_ITS | Clinical Summary ---
Author Organization [facility] Address [address] [place] [id number] Care Team Providers Care Strapping Machine Tender Name Role Phone Unavailable Primary Care Provider Unavailabl e Encounters Date Type Department Care Team Description 07/08/2024 - 07/08/2024 9:08 AM EDT Hospital Encounter Griselda [place] [address] Discharge Disposition: Home or Self [...]
== END 2024-10-05 09:10 | disposition home or self-care (01) ==
LOC: HO.HWS 08:30
PROVIDERS: PCP Internal Medicine; Visit Provider Obstetrics & Gynecology
DX: R87.610 Atypical squamous cells of undetermined significance on cytologic smear of cervix (ASC-US) (principal); N84.1 Polyp of cervix uteri
CPT/HCPCS: 99213

== ENCOUNTER → 2024-10-05 08:30 | Outpatient (BNVA) | payer MEDICARE, SELFPAY | PROVIDERS: PCP Internal Medicine; Visit Provider Obstetrics & Gynecology | DX: R87.610 Atypical squamous cells of undetermined significance on cytologic smear of cervix (ASC-US) (principal); N84.1 Polyp of cervix uteri | CPT/HCPCS: 99212 ==

== ENCOUNTER 2024-10-21 10:35 | Day surgery (SDC) | payer MEDICARE, SELFPAY ==
--- NOTE | 2024-10-20 11:53 | HO.ANESPROP2 ---
Documented by User: Latricia Maynard NP 10/20/24 11:55 HPI - Anesthesia Eval Consult details Narrative: 58yo F for D&C Hysteroscopy,possible myomectomy,possible polypectomy, LEEP,poss loop electric excision,poss loop electrical,cone and post endocervical curettage PMFSH Active Problems Active Problems: All Active Problems HLD (hyperlipidemia) (Acute) Elevated liver enzymes (Acute) Vitamin A deficiency (Acute) Vaginal lesion (Acute) ASCUS of cervix with negative high risk HPV (Acute) Encounter for well woman exam with routine gynecological exam (Acute) Cervical polyp (Acute) Acute upper respiratory infection (Acute) Cervical cancer screening (Acute) Sty, external (Acute) Medicare annual wellness visit, subsequent (Acute) Suspected exposure to mold (Acute) Acne vulgaris (Acute) Upper respiratory tract infection (Acute) Low back pain (Acute) Annual physical exam (Acute) Abnormal mammogram of left breast (Acute) Fluttering sensation of heart (Acute) Recurrent chest pain (Acute) Screening for breast cancer (Acute) Screening for diabetes mellitus (Acute) Irritant dermatitis (Acute) Adult general medical exam (Acute) Screening for hyperlipidemia (Acute) Screening for colon cancer (Acute) Depression (Acute) Anxiety (Acute) Chronic fatigue (Acute) Mitral valve prolapse (Acute) Migraine (Acute) Osteoarthritis of cervical spine (Acute) Past Medical History Medical History Cervical polyp Depression Anxiety Chronic fatigue Mitral valve prolapse Migraine Osteoarthritis of cervical spine Family History Family History Father CVD (cardiovascular disease) Mother HTN (hypertension) Brother HTN (hypertension) Other Mental health problem Surgical History Surgical History History of biopsy Hx of tubal ligation Social History Social History Household Members: Spouse Housing: Condominium Alcohol intake: never Patient Tobacco Use Status: Never used Tobacco e-Cigarette/Vaping Use: Never Used Second Hand Smoke Exposure: No Have you been hit, kicked, punched, or otherwise hurt by someone within the past year? If so, by whom?: No Are you DNR?: No Advance Directives: No Advance Directives Information Provided: Yes Patient : No service: No Current occupational status: retired and disabled Sexual orientation: Straight/Heterosexual Gender identity: Female Cognitive needs: No Hearing needs: No Vision needs: No Meds Allergies Allergy/AdvReac Type Severity Reaction Status Date / Time codeine (CODEINE) Allergy Unknown RASH Verified 10/05/24 08:42 dog dander (DOGS) Allergy Unknown DIFFICULTY Verified 10/05/24 08:42 BREATHING fluconazole (From DIFLUCAN) Allergy Unknown DIARRHEA Verified 10/05/24 08:42 levofloxacin (From LEVAQUIN) Allergy Unknown RASH Verified 10/05/24 08:42 milk (MILK) Allergy Unknown HIVES Verified 10/05/24 08:42 Penicillins (PENICILLINS) Allergy Unknown HIVES Verified 10/05/24 08:42 pollen extracts (POLLEN) Allergy Unknown DIFFICULTY Verified 10/05/24 08:42 BREATHING oxycodone (OXYCODONE) AdvReac Unknown VOMITING Verified 10/05/24 08:42 Exam Pertinent Lab Results Pertinent Lab Results: Laboratory Tests 09/23/24 09:16 WBC 5.0 Hgb 12.9 Hct 39.5 Plt Count 213 Sodium 140 Potassium 4.0 Chloride 106 Carbon Dioxide 30 H BUN 18 H Creatinine 0.63 Narrative Narrative: ECHO 2023 Conclusions: - 1. Normal LV systolic and diastolic function 2. Normal cardiac valvular Dopplers with mild prolapse of the posterior leaflet 3. Normal RV systolic pressure 4. No gross pericardial effusion Assessment and Plan Assessment Anesthesia Assessment: Chart Reviewed Documented by User: Hill Pham MD 10/21/24 13:27 PMF Past Medical History Medical History Cervical polyp Depression Anxiety Chronic fatigue Mitral valve prolapse Migraine Osteoarthritis of cervical spine Family History Family History Father CVD (cardiovascular disease) Mother HTN (hypertension) Brother HTN (hypertension) Other Mental health problem Family history of problems with anesthesia: No Surgical History Surgical History History of biopsy Hx of tubal ligation History of Problems with Anesthesia: No Social History Social History Household Members: Spouse Housing: Condominium Alcohol intake: never Patient Tobacco Use Status: Never used Tobacco e-Cigarette/Vaping Use: Never Used Second Hand Smoke Exposure: No Have you been hit, kicked, punched, or otherwise hurt by someone within the past year? If so, by whom?: No Are you DNR?: No Advance Directives: No Advance Directives Information Provided: Yes Patient : No service: No Current occupational status: retired and disabled Sexual orientation: Straight/Heterosexual Gender identity: Female Cognitive needs: No Hearing needs: No Vision needs: No Meds Allergies Allergy/AdvReac Type Severity Reaction Status Date / Time codeine (CODEINE) Allergy Unknown RASH Verified 10/05/24 08:42 dog dander (DOGS) Allergy Unknown DIFFICULTY Verified 10/05/24 08:42 BREATHING fluconazole (From DIFLUCAN) Allergy Unknown DIARRHEA Verified 10/05/24 08:42 levofloxacin (From LEVAQUIN) Allergy Unknown RASH Verified 10/05/24 08:42 milk (MILK) Allergy Unknown HIVES Verified 10/05/24 08:42 Penicillins (PENICILLINS) Allergy Unknown HIVES Verified 10/05/24 08:42 pollen extracts (POLLEN) Allergy Unknown DIFFICULTY Verified 10/05/24 08:42 BREATHING oxycodone (OXYCODONE) AdvReac Unknown VOMITING Verified 10/05/24 08:42 Exam Airway Mallampati Class: I TM Dist: >3cm Neck ROM: Full Loose/Missing/Broken Teeth: No Heart: ok Lungs: ok Assessment and Plan Assessment Anesthesia Assessment: Anesthesia Plan Discussed Final Anesthetic Review Family History of Problems with Anesthesia: No History of Problems with Anesthesia: No NPO: Yes ASA Class: II Final Preanesthetic Review: No Changes in Pt Med Stat, Meds/Allgs Chart Reviewed, Consent Obtained/Reviewed and Anes Risks/Benef Reviewed Patient Risk: Low Procedure Risk: Low Anesthetic Plan Anesthetic Plan: GA and Agree w/ Assess. and Plan Disposition: Standard PACU
[2024-10-21 11:42] VITALS: BMI 22.3
[2024-10-21 11:55] VITALS: BP 106/71; PULSE 78; RESP 20; TEMP 36.9; O2SAT 99; BMI 22.1
[2024-10-21] MEDS: Lactated Ringers 1,000 ML 100 ML IVCONT (12:09)
--- NOTE | 2024-10-21 12:19 | MHC.SHP ---
Pre-Procedural Eval Section A - 24 Hr Update-Section A only Date of Service: 10/21/24 The patient is an INPATIENT: No Changes since office visit: No Cold of Flu in the past 2 weeks, No New Medical Problems, No Changes in Medication and No Patient answered all questions The patient has been examined within 24 hours of the surgical procedure. The History & Physical has been completed within 30 days and I have reviewed it.: Yes Section B - Complete if H&P > 30 days Chief Complaint: Polyp of cervix uteri,Atypical squamous cells Allergies: Allergies Allergy/AdvReac Type Severity Reaction Status Date / Time codeine (CODEINE) Allergy Unknown RASH Verified 10/05/24 08:42 dog dander (DOGS) Allergy Unknown DIFFICULTY Verified 10/05/24 08:42 BREATHING fluconazole (From DIFLUCAN) Allergy Unknown DIARRHEA Verified 10/05/24 08:42 levofloxacin (From LEVAQUIN) Allergy Unknown RASH Verified 10/05/24 08:42 milk (MILK) Allergy Unknown HIVES Verified 10/05/24 08:42 Penicillins (PENICILLINS) Allergy Unknown HIVES Verified 10/05/24 08:42 pollen extracts (POLLEN) Allergy Unknown DIFFICULTY Verified 10/05/24 08:42 BREATHING oxycodone (OXYCODONE) AdvReac Unknown VOMITING Verified 10/05/24 08:42 Plan Diagnosis/Plan: Unchanged I have reviewed the history and physical and performed a pertinent physical examination on my patient. No changes have occurred unless specified. Time Spent With Patient Time: Total time managing care of this patient today ____ minutes.
--- NOTE | 2024-10-21 14:01 | P.BOP_ITS ---
Brief Operative Note Date of Service: 10/21/24 Pre-op diagnosis: Cervical polyp with atypia, ASCUS Post-op diagnosis: same Procedure: Hysteroscopy D&C, cervical Polypectomy LEEP and post LEEP ECC Surgeon: Alok De Anda MD Anesthesia: GLMA Was an Security Door Installer used for this Procedure?: No Estimated blood loss (mL): 0 Pathology: other (Endometrial Scrapping. Cervical Polyp, anterior cervical lip, posterior cervical lip and post LEEP ECC) Condition: stable Disposition: PACU
--- NOTE | 2024-10-21 14:02 | W.PM.OPN ---
Operative Note Operative Note Date of Service: 10/21/24 Narrative: Preop Diagnosis: Cervical polyp with atypia, ascus Operation: Diagnostic Hysteroscopy, Dilataion & Curettage and polypectomy, LEEP with post LEEP ECC Post Op Diagnosis: Cervical Polyp, normal endometrial cavity QBL: Minimal Anesthesia: GLMA Surgeon: Alok De Anda MD Angular Js Developer: None Complication: None Pathology: Endometrial Scrapings, Endometrial polyp, anterior cervical lip, posterior cervical lip, post LEEP ECC Procedure: The patient was put in the dorsal lithotomy position, scrubbed, and draped in the usual manner. A sterile speculum was inserted in the patient's vagina. Especially revealed posterior cervical lip polyp which was grasped with a long Kati clamp, using small LEEP wire, the cervical polyp was excised from the base of the posterior cervical lip, hemostasis was assured using The anterior lip of the cervix was watery. Then grasped with a single tooth tenaculum. The cervix was dilated up to 5 mm, then the scope was inserted in the patient's uterus. Inspection revealed endometrial polyp. The Myosure Reach device was used; it was introduced through the operative channel and polypectomy done with no complications. The scope was then taken out from the uterine cavity, sharp curettings was carried on with minimal to moderate amount of tissues retrieved. At the end of the procedure, all instruments were taken out of the patient uterine and vaginal cavity. The single tooth tenaculum was removed and homeostasis was assured using pressure. 10 cc of xylocaine with epinephrine were injected submucosally into the surface of the cervix (ectocervix) at the 3, 6, 9, and 12 o'clock positions. The electrosurgical generator is set at 40 spear on blend 1, anterior cervical lip was excised followed by the posterior cervical lip and a post LEEP endocervical curettage was done. Hemostasis assured using cautery and onset solution The patient tolerated the procedure well and was transferred to the PACU in a stable condition.
[2024-10-21 14:10] VITALS: BP 92/56; PULSE 76; RESP 16; TEMP 36.6; O2SAT 100
[2024-10-21 14:15] VITALS: BP 91/63; PULSE 70; RESP 15; O2SAT 100
[2024-10-21 14:20] VITALS: BP 88/58; PULSE 71; RESP 16; O2SAT 100
[2024-10-21 14:25] VITALS: BP 99/59; PULSE 68; RESP 14; O2SAT 100
[2024-10-21 14:38] VITALS: BP 101/67; PULSE 72; RESP 15; TEMP 36.4; O2SAT 99
== END 2024-10-21 15:06 | disposition home or self-care (01) ==
PROVIDERS: PCP Internal Medicine; Visit Provider Obstetrics & Gynecology
PROC: 0UDB8ZZ Extraction of Endometrium, Via Natural or Artificial Opening Endoscopic (ICD-10-PCS; CPT 58558; principal; 2024-10-21 13:20)
PROC: 0UBC7ZZ Excision of Cervix, Via Natural or Artificial Opening (ICD-10-PCS; CPT 57522; 2024-10-21 13:20)
DX: N84.1 Polyp of cervix uteri (principal); N88.8 Other specified noninflammatory disorders of cervix uteri; N72 Inflammatory disease of cervix uteri; R53.82 Chronic fatigue, unspecified; M47.812 Spondylosis without myelopathy or radiculopathy, cervical region; G43.909 Migraine, unspecified, not intractable, without status migrainosus; F32.A Depression, unspecified; F41.9 Anxiety disorder, unspecified; Z88.5 Allergy status to narcotic agent; Z88.0 Allergy status to penicillin; Z88.1 Allergy status to other antibiotic agents; Z98.51 Tubal ligation status
CPT/HCPCS: 58558; 57522; 88305; 88307; J1885; J2003; J2004; J2405; J2704; J3010

== ENCOUNTER → 2024-10-21 10:35 | Outpatient (BNV) | payer MEDICARE, SELFPAY | PROVIDERS: PCP Internal Medicine; Visit Provider Obstetrics & Gynecology | DX: N84.1 Polyp of cervix uteri (principal) | CPT/HCPCS: 57461 ==

== ENCOUNTER 2024-11-08 08:00 | Outpatient (AMB) | payer MEDICARE, SELFPAY ==
--- NOTE | 2024-11-08 08:09 | A.OFFVIS_ITS ---
Vital Signs 11/08/24 08:16 Height 5 ft 2 in Weight 121 lb BMI 22.1 BP 102/60 Intake Visit Reasons: Post op Floral Decorator Required: No Information Interpreted: non-clinical & clinical Accompanied by: Spouse Allergies codeine (CODEINE) Allergy (Unknown, Verified 11/08/24 08:17) RASH dog dander (DOGS) Allergy (Unknown, Verified 11/08/24 08:17) DIFFICULTY BREATHING fluconazole (From DIFLUCAN) Allergy (Unknown, Verified 11/08/24 08:17) DIARRHEA levofloxacin (From LEVAQUIN) Allergy (Unknown, Verified 11/08/24 08:17) RASH milk (MILK) Allergy (Unknown, Verified 11/08/24 08:17) HIVES Penicillins (PENICILLINS) Allergy (Unknown, Verified 11/08/24 08:17) HIVES pollen extracts (POLLEN) Allergy (Unknown, Verified 11/08/24 08:17) DIFFICULTY BREATHING oxycodone (OXYCODONE) Adverse Reaction (Unknown, Verified 11/08/24 08:17) VOMITING Post menopausal: Yes HPI Comments Details: The patient is presenting post hysteroscopy D&C, cervical polypectomy and LEEP, the patient has no complaints minimal vaginal bleeding no feverishness chills or abdominal pain. The pathology showed the following: A. Cervix, polypectomy: Benign endocervical polyp with prominent Nabothian cysts. B. Cervix, anterior lip, LEEP: Acute cervicitis and previous biopsy site changes; negative for squamous intraepithelial lesion. C. Cervix, posterior lip, LEEP: Acute cervicitis and previous biopsy site changes; negative for squamous intraepithelial lesion. D. Endocervix, post-LEEP, curettage: Fragments of benign endocervical glands; negative for squamous intraepithelial lesion. E. Endometrium, curettage: Predominantly blood and scant strips of inactive endometrial glands; negative for atypia, hyperplasia or malignancy. COMMENT: The atypical cells noted on the patient's previous cervical biopsies ([id number]) may be represented by the reactive epithelial changes seen above [facility] Medical History Cervical polyp Depression Anxiety Chronic fatigue Mitral valve prolapse Migraine Osteoarthritis of cervical spine Surgical History History of biopsy Hx of tubal ligation Family History Father CVD (cardiovascular disease) Mother HTN (hypertension) Brother HTN (hypertension) Other Mental health problem Social History Household Members: Spouse Housing: Condominium Alcohol intake: never Patient Tobacco Use Status: Never used Tobacco e-Cigarette/Vaping Use: Never Used Second Hand Smoke Exposure: No service: No Current occupational status: retired and disabled Sexual orientation: Straight/Heterosexual Gender identity: Female Cognitive needs: No Hearing needs: No Vision needs: No Review of Systems Const All systems reviewed & are unremarkable except as noted in HPI and below Reports as per HPI and Reports no additional complaints GI Reports no additional complaints Reports no additional complaints Physical Exam Vital Signs: Last Vital Signs BP 102/60 11/08/24 08:16 BMI result Body Mass Index 22.1 Assessment & Plan Assessment & Plan (1) ASCUS of cervix with negative high risk HPV: Comment: Atypia insufficient for dysplasia diagnosis Negative cervical LEEP pathology Code(s): R87.610 - Atypical squamous cells of undetermined significance on cytologic smear of cervix (ASC-US) Category: Medical Plan: Discussed with the patient the results the pathology showing no evidence of any pathology. Recommended co testing in 1 year. Instructions given the patient is schedule 1 year co testing appointment. (2) Cervical polyp: Comment: Focal atypia insufficient for dysplasia diagnosis Code(s): N84.1 - Polyp of cervix uteri Category: Medical Plan: Discussed with the patient the results the pathology, negative no evidence of atypia or hyperplasia or any other concerns Instructions given the patient to call in case of vaginal bleeding will proceed with further workup. All questions answered, the patient verbalized understanding Coding Level of Care Code Est Pt Level 3 (57893) Diagnoses ASCUS of cervix with negative high risk HPV R87.610 Cervical polyp N84.1
[2024-11-08 08:16] VITALS: BP 102/60; BMI 22.1
== END 2024-11-08 08:57 | disposition home or self-care (01) ==
LOC: HO.HWS 08:01
PROVIDERS: PCP Internal Medicine; Visit Provider Obstetrics & Gynecology
DX: R87.610 Atypical squamous cells of undetermined significance on cytologic smear of cervix (ASC-US) (principal); N84.1 Polyp of cervix uteri
CPT/HCPCS: 99213

== ENCOUNTER → 2024-11-08 08:00 | Outpatient (BNVA) | payer MEDICARE, SELFPAY | PROVIDERS: PCP Internal Medicine; Visit Provider Obstetrics & Gynecology | DX: R87.610 Atypical squamous cells of undetermined significance on cytologic smear of cervix (ASC-US) (principal); N84.1 Polyp of cervix uteri; Z98.890 Other specified postprocedural states | CPT/HCPCS: 99212 ==

== ENCOUNTER 2024-12-20 13:17 | Outpatient (AMB) | payer MEDICARE, SELFPAY ==
[2024-12-20 13:23] VITALS: BP 92/52; PULSE 80; TEMP 36.3; O2SAT 98; BMI 22.5
--- NOTE | 2024-12-20 13:23 | A.OFFVIS_ITS ---
Intake Vital Signs 12/20/24 13:23 Height 5 ft 2 in Weight 123 lb 2 oz BMI 22.5 BP 92/52 L Blood Pressure Location Lt brachial Position Sitting Pulse 80 Pulse Source Pulse Oximeter Temp 97.3 F Temp Source Temporal Artery Scan Pulse Oximetry (%) 98 Oxygen Delivery Method Room Air Intake Visit Reasons: ZACARIASEdna [id number] Automotive Engineer Required: No Information Interpreted: non-clinical & clinical Accompanied by: Spouse Allergies codeine (CODEINE) Allergy (Unknown, Verified 12/20/24 14:04) RASH dog dander (DOGS) Allergy (Unknown, Verified 12/20/24 14:04) DIFFICULTY BREATHING fluconazole (From DIFLUCAN) Allergy (Unknown, Verified 12/20/24 14:04) DIARRHEA levofloxacin (From LEVAQUIN) Allergy (Unknown, Verified 12/20/24 14:04) RASH milk (MILK) Allergy (Unknown, Verified 12/20/24 14:04) HIVES Penicillins (PENICILLINS) Allergy (Unknown, Verified 12/20/24 14:04) HIVES pollen extracts (POLLEN) Allergy (Unknown, Verified 12/20/24 14:04) DIFFICULTY BREATHING oxycodone (OXYCODONE) Adverse Reaction (Unknown, Verified 12/20/24 14:04) VOMITING Medication List - Last Reconciled 12/20/24 by Beto Ba MD bupropion HCl SR 150 mg PO DAILY 90 days Post menopausal: Yes HPI V G0439 HPI Details Patient comes in today for her Annual Medicare Wellness Exam AND follow up visit States that she is concerned about some perceived forgetfulness on her part lately States that this has been occurring on and off over the past year or so and her most recent incident was when she nearly submitted an unsealed envelope with a check inside She admits that she has also been experiencing poor sleep, stating she wakes up feeling tired every day Notes that her sleep is often interrupted by her having to go use the bathroom - waking up two to three times per night to urinate, which she attributes to her likely drinking a lot of water Relates that about two weeks ago, she experienced an episode of feeling shaky and found her blood sugar was at 55 mg/dl at the time, which she believes was because she had not eaten earlier that evening States that she feels okay otherwise She denies any headaches or dizziness Denies any chest pains, no increased SOB No nausea/vomiting, no abdominal pain No change in bowel habits noted She had her follow up labs done a few months ago in September 2024 - to discuss her results She has a history of an abnormal Pap smear (ASCUS), which led to a biopsy and the removal of a cervical polyp by Dr. Byrd; results were negative. She is currently experiencing some bleeding and needs to make a follow-up appointment with her test examiner NAHOMY She had her annual mammogram last done in March 2024 at [facility] and has her next mammogram scheduled sometime in March of next year (2025) She had a negative Cologuard test back in January 2024 and does not wish to go for a screening colonoscopy Her recent lab work showed a normal blood count, kidney function, electrolytes, and an excellent Hemoglobin A1c of 4.9. Her liver enzymes were two or three points higher than last time, bad cholesterol was down by seven points from two years ago, and her vitamin A was slightly low [place] of care was reviewed and updated today Patient has a healthcare proxy in place and on file IPPE/AWV: c/o of Annual Wellness Visit, subsequent visit. Medical / Social History Reviewed Past Medical History Yes . [place] of Care / Care Team list updated Yes . Surgical/Hospitalization History Yes . Current Medications (including OTC and supplements) Yes . Family History Yes . Tobacco Control form Yes . AUDIT-C (Alcohol use) form Yes . Illicit drug use in Social History Yes . Current diagnosis of depression? No Appropriate PHQ2/PHQ9 completed Yes . Data entered by Die Assembler and reviewed by provider Home Safety Throw rugs? No Grab bars? No Raised toilet seats? No Working smoke detectors? Yes Working carbon monoxide detectors? Yes Data entered by Die Assembler and reviewed by provider Activities of Daily Living (ADLs) Difficulty bathing or showering? No Difficulty dressing? No Difficulty using the toilet? No Difficulty getting in and out of bed? No Difficulty walking? No Receives help from another person with any of the above tasks? No Instrumental Activities of Daily Living (IADLs) Uses the telephone without help Gets to places out of walking distance without help Goes shopping for groceries without help Prepares own meals without help Does own minor home maintenance without help Does own laundry without help Does own housework without help Manages own money without help Currently takes medications? Yes Takes medication without help End-of-Life Planning Discussed advance directive Yes Advance directive on file Discussed wishes expressed in advance directive agreed to following patient's wishes Fall Risk: Fall History Have you had any falls with injury in the past year? No . Have you had two or more falls in the past year? No . Fall Risk Assessment: No falls in the past year . HRA filled out by the patient, reviewed by Provider and scanned. [facility] Medical History Cervical polyp Depression Anxiety Chronic fatigue Mitral valve prolapse Migraine Osteoarthritis of cervical spine Surgical History History of biopsy Hx of tubal ligation Family History Father CVD (cardiovascular disease) Mother HTN (hypertension) Brother HTN (hypertension) Other Mental health problem Social History Household Members: Spouse Housing: Condominium Alcohol intake: never Patient Tobacco Use Status: Never used Tobacco e-Cigarette/Vaping Use: Never Used Second Hand Smoke Exposure: No service: No Current occupational status: retired and disabled Sexual orientation: Straight/Heterosexual Gender identity: Female Cognitive needs: No Hearing needs: No Vision needs: No Questionnaire Medicare Wellness Checkup [age] What gender do you identify with?: female During the past 4 weeks, how much have you been bothered by emotional problems such as feeling anxious, depressed, irritable, sad or downhearted, and blue?: slightly During the past 4 weeks, has your physical & emotional health limited your social activities with family, friends, neighbors, or groups?: moderately During the past 4 weeks, how much bodily pain have you generally had?: mild pain During the past 4 weeks, was someone available to help you if you needed & wanted help?: yes, as much as I wanted During the past 4 weeks, what was the hardest physical activity you could do for at least 2 minutes?: very light Can you get to places out of walking distance without help? (For eg., can you travel alone on buses, taxis or drive your car?): Yes Can you go shopping for groceries or clothes without someone's help?: Yes Can you prepare your own meals?: Yes Can you do your housework without help?: Yes (sometimes) Because of any health problems, do you need the help of another person with your personal care needs such as eating, bathing, dressing or getting around the house?: No Can you handle your own money without help?: Yes During the past 4 weeks, how would you rate your health in general?: fair During the past 4 weeks how have things been going for you?: good & bad parts about equal Are you having difficulties driving your car?: no Do you always fasten your seat belt when you are in a car?: yes, usually During past 4 weeks, have you been bothered by the following: never: Problems using the telephone?, seldom: Sexual problems? and Teeth or denture problems?, sometimes: Falling or dizzy when standing up and Trouble eating well? and always: Tiredness or fatigue? Have you fallen 2 or more times in the past year?: Yes Are you afraid of falling?: Yes Are you a smoker?: no During the past 4 weeks, how many drinks of wine, beer, or other alcoholic beverages did you have?: no alcohol at all Do you exercise for about 20 minutes 3 or more times a week?: no, I usually do not exercise this much Have you been given information to help with the following?: no: Hazards in your house that might hurt you? and no: Keeping track of your medications? How often do you have trouble taking medicines the way you have been told to take them?: I always take medicine as prescribed How confident are you that you can control & manage most of your health problems?: somewhat confident What is your race?: or origin or descent Mini Mental State Exam (MMSE) Orientation What is the (year) (season) (date) (day) (month)?: year, season, date, day and month Where are we (state) (county) (town or city) (hospital) (floor)?: state, county, town or city, hospital/clinic and floor Registration Name of 3 unrelated objects clearly and slowly, then ask patient to repeat all 3 of them. (1st repeat determines score. Make sure they can repeat all three): object 1, object 2 and object 3 Attention & Calculation (CHOOSE ONE) Ask pt to begin with 100 & count backward by 7. Stop after 5 repeats. If pt cannot ask them to spell the word WORLD backward.: 93 Recall Ask patient to repeat the 3 items from question #3.: object 1 and object 3 Language Show patient a wristwatch & ask what it is. Repeat for pencil.: watch and pencil Ask the patient to repeat the phrase 'No ifs, ands, or buts' after you.: correct Ask the patient to 'take a piece of paper with their right hand' 'fold paper in half' 'place paper on floor': take paper in right hand, fold paper in half and place paper on floor Print the sentence 'CLOSE YOUR EYES' on a piece. If patient actually closes eyes then score.: followed written direction Ask patient to copy figure of intersecting pentagons exactly. Score if all 10 angles & 2 intersects are included.: all 10 angles present & 2 are intersected Score Score: 24 Activity of Daily Living Bathing - sponge bath, tub bath or shower: receives no assistance (gets in/out by self, if usual bathing means Dressing - getting clothes from closets & drawers, including inner/outer garments & fasteners.: gets clothes & gets completely dressed without help Toileting - going to the 'toilet room' for urine/bowel elimination & cleaning self/arranging clothes: goes to toilet room, cleans self, arranges clothes without help Transfer: moves in & out of bed and chair without help (may use support object) Continence: controls urination/bowel movements completely by self Feeding: feeds self without help Total Score: 0 Information obtained from: patient Using telephone: independent Traveling: independent Shopping: independent Preparing meals: independent Housework: independent Taking medicine: independent Managing money: independent PHQ-9 Over the last 2 weeks, how often have you been bothered by any of the following problems? 1. Little interest or pleasure in doing things: not at all 2. Feeling down, depressed, or hopeless: several days 3. Trouble falling or staying asleep, or sleeping too much: several days 4. Feeling tired or having little energy: several days 5. Poor appetite or overeating: not at all 6. Feeling bad about yourself - or that you are a failure or have let yourself or your family down: not at all 7. Trouble concentrating on things, such as reading the newspaper or watching television: not at all 8. Moving or speaking so slowly that other people could have noticed. Or the opposite - being so fidgety or restless that you have been moving around a lot more than usual: not at all 9. Thoughts that you would be better off or of hurting yourself in some way: not at all Total score: 3 Depression Screening Interpretation: Negative Depression Screening Done: Yes 29570 - PHQ-9 Billing: Yes Source: Developed by Drs. Ahmet Francis, Peyton Tubbs, Gabriel Nicholson and colleagues, with an educational benson from [employer]. Review of Systems Const Denies chills, Reports difficulty sleeping (wakes up often to use the bathroom), Reports fatigue, Denies fever(s) and Denies headache(s) ENT Denies dysphagia, Denies dizziness, Denies otalgia, Denies headache(s), Reports neck pain (on and off), Denies odynophagia and Denies sore throat Card Denies chest pain, Reports palpitations (occasional fluttering sensation in heart, usually when she feels stressed) and Denies dyspnea Resp Denies chest congestion, Denies cough and Denies dyspnea GI Denies abdominal pain, Denies constipation, Denies dysphagia, Denies heartburn, Denies diarrhea, Denies nausea, Denies odynophagia and Denies vomiting Denies difficulty voiding, Reports nocturia, Denies dysuria and Denies urinary urgency Musc Reports back pain (on and off over the lower back), Reports arthralgias (on and off), Reports neck pain (on and off) and Reports stiffness (in the neck) Skin/Breast Denies rash Neuro Denies dizziness, Denies headache(s) and Reports memory loss (see HPI) Psych Reports anxiety and Reports memory loss (see HPI) Endo Reports fatigue and Reports palpitations (occasional fluttering sensation in heart, usually when she feels stressed) Physical Exam Vital Signs: Last Vital Signs Temp 97.3 F 12/20/24 13:23 Pulse 80 12/20/24 13:23 BP 92/52 L 12/20/24 13:23 Pulse Ox 98 12/20/24 13:23 Oxygen Delivery Method Room Air 12/20/24 13:23 BMI result Body Mass Index 22.5 IPPE/AWV: Balance Romberg Yes . Tandem walk Yes . Walk and Turn Yes . Rise from sit to stand Yes . Vision Corrective lens No Vision screen pass Hearing Whisper test pass . Urinary incont. no. EKG Not clinically necessary. Const General: no acute distress and alert Orientation/consciousness: patient oriented x3 HEENT Ears: TM's normal bilaterally and EAC's normal Throat: Yes posterior oropharynx normal and Yes tonsils normal Neck Neck: Yes supple and No lymphadenopathy Thyroid: Thyroid normal Resp Auscultation: clear to auscultation bilaterally, no crackles, no rales and no wheezes Cardio Jugular venous distension: no JVD Rate: regular rate Rhythm: regular rhythm Heart sounds: no murmurs GI Palpation (GI): Soft to palpation and nontender Auscultation: normal bowel sounds General: Yes no CVA tenderness Back/Spine/Pelvis Back: no CVA tenderness Cervical Spine: Cervical spine tenderness (mild) Thoracic/Lumbar Spine: lumbar spinal tenderness (mild) Skin Rashes: no rashes Neuro General: patient oriented x3 Cranial nerves: Yes CN's II-XII intact bilaterally Cognition (Neuro): normal cognition Gait exam (Neuro): Normal gait present Extrem General: Yes no clubbing, cyanosis or edema Psych Thought process: Normal thought process present Results Reviewed Results Reviewed: Laboratory Tests 09/23/24 09/23/24 09:12 09:16 WBC 5.0 Hgb 12.9 Hct 39.5 Plt Count 213 Sodium 140 Potassium 4.0 Creatinine 0.63 Estimated GFR > 60 Fasting Glucose 89 Hemoglobin A1c % 4.9 Calcium 8.9 D AST 37 H ALT 46 H Triglycerides 60 Cholesterol 185 LDL Cholesterol, Calc 112 H HDL Cholesterol 61 Vitamin A 36 L 25-OH Vitamin D Total 98.3 TSH 0.83 Ur Specific [place] 1.010 Urine Protein Negative Urine Glucose (UA) Negative Urine Blood Negative Urine Nitrite Negative Ur Leukocyte Esterase Moderate (2+) H Assessment & Plan Assessment & Plan (1) Medicare annual wellness visit, subsequent: Code(s): Z00.00 - Encounter for general adult medical examination without abnormal findings Plan: DENNIS updated HRA form discussed and completed with patient - form will be scanned into patient's chart (2) Memory impairment: Code(s): R41.3 - Other amnesia Plan: Patient is currently concerned about some perceived forgetfulness on her part but she scored 24 out of 30 on her mini-mental exam today Have advised patient that her recently memory issues/lapses may be more due to anxiety and stress as well as her lack of sleep, which cumulatively can affect one's attention span, mental alertness, memory recall (short-term), as well as mood and that getting more and better sleep can probably address these issues (3) Chronic fatigue: Code(s): R53.82 - Chronic fatigue, unspecified Plan: Have discussed again with patient that this is most likely related to her mood disorder Have advised her of the option to refer her to sleep medicine for further evaluation but patient again declined; states that she will call for referral if she decides to pursue this in the future (4) Migraine: Code(s): G43.909 - Migraine, unspecified, not intractable, without status migrainosus Qualifiers: Migraine type: unspecified Status migrainosus presence: without status migrainosus Intractability: not intractable Qualified Code(s): G43.909 - Migraine, unspecified, not intractable, without status migrainosus Plan: Stable/controlled Reinforced again avoidance of all potential migraine triggers Continue OTC Excedrin Migraine and/or Fioricet 50-325-40 mg 2 to 3 times a day only as needed (5) Mitral valve prolapse: Comment: Echocardiogram done in June 2015 came out normal Code(s): I34.1 - Nonrheumatic mitral (valve) prolapse Plan: She has been advised by cardiology that she had a normal EKG and her echocardiogram done in 2016 also came out normal, and without any significant family history of CAD, she does not require any further cardiac work ups and just needs to see or follow up with cardiology as needed She was seen by [facility] (per her request) sometime in August 2022 and had several work ups done, including a 14-day ZIO XT patch as well as an exercise nuclear stress test Echocardiogram done back on 04/30/22 revealed a normal LVEF of 55 to 60%, with no regional wall motion abnormalities; RV is normal in size and function and there is mild prolapse of the posterior mitral valve leaflet and trace mitral regurgitation but a follow up echo in 2015 was reportedly normal States that she was never called up again after her tests so she assumed all of her work ups were normal We had her repeat her echocardiogram for follow up in August 2023, which revealed similar findings from the year before - normal LV systolic and diastolic function, normal cardiac valvular Doppler with mild prolapse of the posterior leaflet, normal RV systolic pressure and no gross pericardial effusion Follow up with cardiology as needed (6) Osteoarthritis of cervical spine: Comment: Cervical spine x[place] done [place] [facility] [place] showed (+) degenerative changes at C5 - C6 Code(s): M47.812 - Spondylosis without myelopathy or radiculopathy, cervical region Qualifiers: Spinal osteoarthritis complication: unspecified spinal osteoarthritis Qualified Code(s): M47.812 - Spondylosis without myelopathy or radiculopathy, cervical region Plan: Patient is reminded again to continue with the neck stretching exercises that she was previously instructed on regularly to help manage her neck pains better May continue using OTC topical meds and patches PRN for symptomatic relief (7) Anxiety: Code(s): F41.9 - Anxiety disorder, unspecified Plan: Continue Wellbutrin SR 150 mg QD, which she states has been helping with her anxiety and she does not wish to have her Rx dose increased/adjusted further at this time (8) Depression: Code(s): F32.9 - Major depressive disorder, single episode, unspecified Qualifiers: Depression Type: dysthymia Qualified Code(s): F34.1 - Dysthymic disorder Plan: Continue Wellbutrin SR 150 mg QD Plan Follow up in 6 months Quality Reporting (2019) Depression/Bipolar (159/160/161/177) PHQ-9: Total score: 3 Coding Level of Care Code Medicare Subsequent (G0439) Est Pt Level 4 (94804) Diagnoses Medicare annual wellness visit, subsequent Z00.00 Memory impairment R41.3 Chronic fatigue R53.82 Migraine without status migrainosus, not intractable, unspecified migraine type G43.909 Migraine type: unspecified Status migrainosus presence: without status migrainosus Intractability: not intractable Mitral valve prolapse I34.1 Osteoarthritis of cervical spine, unspecified spinal osteoarthritis complication status M47.812 Spinal osteoarthritis complication: unspecified spinal osteoarthritis Anxiety F41.9 Dysthymia F34.1 Depression Type: dysthymia CPT Codes Advance Care Planning - Advance Care Planning discussion: On file, no changes ([id number]) Advance Care Planning - Time spent: 1-15 minutes, on File ([id number]) Additional Codes PHQ-9 - 22906 - PHQ-9 Billing: Yes ([id number]) Advance Care Planning Advance Care Planning discussion: On file, no changes Date of discussion: 12/20/24 Who was present: patient, spouse, PCP Time spent: 1-15 minutes, on File
--- OUTSIDE RECORDS SUMMARY | 2024-12-20 16:13 | XMS_ITS | Patient Health Record ---
Author Organization [facility] Address [address] [place] [address] Care Team Providers Care Senior Linux Unix Administrator Name Role Phone Mane Feliciano Jr [phone] Reason For Referral No Information Plan Of Treatment No Information
== END 2024-12-20 14:24 | disposition home or self-care (01) ==
LOC: HO.HMCH 13:18
PROVIDERS: PCP Internal Medicine; Visit Provider Internal Medicine
DX: Z00.00 Encounter for general adult medical examination without abnormal findings (principal); R41.3 Other amnesia; R53.82 Chronic fatigue, unspecified; G43.909 Migraine, unspecified, not intractable, without status migrainosus; I34.1 Nonrheumatic mitral (valve) prolapse; M47.812 Spondylosis without myelopathy or radiculopathy, cervical region; F41.9 Anxiety disorder, unspecified; F34.1 Dysthymic disorder

== ENCOUNTER → 2024-12-20 13:17 | Outpatient (BNVA) | payer MEDICARE, SELFPAY | PROVIDERS: PCP Internal Medicine; Visit Provider Internal Medicine | DX: Z13.31 Encounter for screening for depression (principal) | CPT/HCPCS: 96127 ==